=== PATIENT | male | born 1990 | race Caucasian/White ===

== ENCOUNTER 2018-01-07 09:51 | Emergency (ER) | payer MEDICAID, SELFPAY ==
[2018-01-07 09:55] VITALS: BP 146/79; PULSE 102; RESP 18; TEMP 36.7; O2SAT 100
--- NOTE | 2018-01-07 10:03 | ED.GENADUL ---
Disposition Clinical Impression: Drug withdrawal Disposition: HOME Condition: Fair Additional Instructions: Encourage hydration. You may use Imodium to help with your diarrhea. Tylenol and/or ibuprofen as needed for discomfort. Please go directly to [facility] to begin establishing care. If you develop new or worsening symptoms seek care urgently once again. Our team primary care physician has helped to establish a primary care in this area. , Jan.17 at 1:15 PM with Ernie De La Rosa at [facility]. Referrals: Primary Care Provider [Outside] Medical Decision Making - Medical Decision Making Patient presents today with chief complaint of Suboxone withdrawal. Patient reports that he moved here recently from [facility]. Is able to give me the name of his clinic. Was being seen at [facility]. Reports that for the past 5 days he has been without his Suboxone that he is began having withdrawals in particular, patient is endorsing diarrhea, shakiness and inability to sleep. Reviewed PDMP, last received suboxone on 11/20/17. Suboxone 8.6-2.1 #56 for 28 days of therapy. Contacted [facility] in [facility] regarding establishing patient care since possible to receive his Suboxone. However, they advised her to be at least 2 weeks prior to intake seem to be completed. They did advise that even with the cast paperwork, it would be at least 1 week until this paperwork may be reviewed by a physician and signed off on. Contacted [facility] in [facility]. They 2 are in agreement that they may be able to begin him sooner with guest paperwork completed. They advised that they would be able to dose him as soon as tomorrow if we are able to get this paperwork faxed to their facility. Spoke with [facility] in [place] regarding the guest paperwork. They were unfamiliar with this terminology. However, we discussed this further they are aware of what we are referring to. However, they report that is it has been over 1 month since the patient was last seen at the facility they are unable to supply this. They advised that, per state law, they are unable to give the patient any type of medication if it is been over a month since they were evaluated and he would need a full intake once again. They report that he would be able to return back to their facility but that it would be approximately 2 weeks prior to an antique being completed once again. [facility] # [phone]. I discussed this with the patient. Advised that he would need an intake at a nearby facility. Patient is concerned about this as he has been smoking marijuana which would show up on his drug screen. Patient did receive his one-time dosing here. He says that this will be enough to get him for the next few days as he has not been trying to deal with the withdrawal symptoms. He will go directly from here to the [facility] to try to establish care. pediatric care coordinator graciously was able to establish care with local primary care, patient has an appointment next week. We discussed new/worsening symptoms when to seek care urgently once again. Patient was questioning if he may return on a daily basis for his Suboxone dosing. I advised that this would be at the discretion of the provider coming on and would not be guaranteed. All of his questions and concerns were addressed and he is in agreement this plan. History of Present Illness - General Stated complaint: MED CHECK/ REFILL Time Seen by Provider: 01/07/18 09:53 Source: patient, RN notes reviewed Mode of arrival: ambulatory Limitations: no limitations - History of Present Illness Initial comments: Patient is a 27 year old male with history of opioid abuse requesting refill of Suboxone. Patient last had his daily dosing of suboxone 5 days ago. Reports that he is feeling shaky, has had diarrhea, difficulty sleeping. Patient recently moved to the area from [place], [place]. Reports he has been clean of illicit drugs for the past 10 months. Is planning to establish with [facility] but has been unable to do so as of yet, states that he has appointment in a few weeks in [place] at [facility]. However, with his current withdrawal symptoms does not feel like he will be able to wait that long. History of anxiety and depression. - Related Data Buprenorphine HCl/Naloxone HCl [Zubsolv 8.6-2.1 mg Tablet Sl] 2 tab SL DAILY 01/07/18 Docusate Sodium 100 mg PO DAILY 01/07/18 Gabapentin 300 mg PO TID 01/07/18 Omeprazole 20 mg PO DAILY 01/07/18 Quetiapine Fumarate 50 mg PO DAILY 01/07/18 Sennosides [Senna] 8.6 mg PO DAILY 01/07/18 Sertraline [Zoloft] 150 mg PO DAILY 01/07/18 Allergies Allergy/AdvReac Type Severity Reaction Status Date / Time codeine Allergy Itching Unverified 01/07/18 10:03 Review of Systems Constitutional: see HPI. denies: chills, fever, malaise, weakness Respiratory: no symptoms reported. denies: cough, shortness of breath Cardiovascular: denies: chest pain, palpitations Gastrointestinal: as per HPI, diarrhea. denies: abdominal pain, nausea, vomiting Genitourinary: denies: urgency (no change in urinary habits) Musculoskeletal: back pain Skin: denies: rash Neurological: denies: headache Psychiatric: as per HPI Past Medical History - Past Medical History Medical history: no medical history Surgical history: no surgical history Psychiatric history: anxiety, depression - Social History Living Situation: lives with parent(s) (lives with father currently) General Exam - General Limitations: no limitations General appearance: alert, in no apparent distress - Head Head exam: Present: atraumatic - Eye Eye exam: Present: normal apperance - Respiratory Respiratory exam: Present: normal lung sounds bilaterally. Absent: respiratory distress - Cardiovascular Cardiovascular Exam: Present: regular rate, normal rhythm, normal heart sounds - Extremities Exam Extremities exam: Present: normal inspection (appears shaky) - Neurological Exam Neurological exam: Present: alert, normal gait - Psychiatric Psychiatric exam: Present: normal affect, normal mood, anxious. Absent: homicidal ideation, suicidal ideation - Skin Skin exam: Present: warm, dry, normal color Course Vital Signs - 24 hr 01/07/18 09:55 Temperature 36.7 C Pulse 102 H Respiratory 18 Rate Blood Pressure 146/79 Pulse Oximetry 100
--- NOTE | 2018-01-07 10:10 | ED.GENADUL_ITS ---
Disposition Clinical Impression: Drug withdrawal Disposition: HOME Condition: Fair Additional Instructions: Encourage hydration. You may use Imodium to help with your diarrhea. Tylenol and/or ibuprofen as needed for discomfort. Please go directly to [facility] to begin establishing care. If you develop new or worsening symptoms seek care urgently once again. Our human services care specialist has helped to establish a primary care in this area. , Jan.17 at 1:15 PM with Ernie De La Rosa at [facility]. Referrals: Primary Care Provider [Outside] Medical Decision Making - Medical Decision Making Patient presents today with chief complaint of Suboxone withdrawal. Patient reports that he moved here recently from [facility] Is able to give me the name of his clinic. Was being seen at [facility]. Reports that for the past 5 days he has been without his Suboxone that he is began having withdrawals in particular, patient is endorsing diarrhea, shakiness and inability to sleep. Reviewed PDMP, last received suboxone on . Suboxone 8.6-2.1 #56 for 28 days of therapy. Contacted [facility] in [facility] regarding establishing patient care since possible to receive his Suboxone. However, they advised her to be at least 2 weeks prior to intake seem to be completed. They did advise that even with the cast paperwork, it would be at least 1 week until this paperwork may be reviewed by a physician and signed off on. Contacted [facility] in [place]. They 2 are in agreement that they may be able to begin him sooner with guest paperwork completed. They advised that they would be able to dose him as soon as tomorrow if we are able to get this paperwork faxed to their facility. Spoke with [facility] in [place] regarding the guest paperwork. They were unfamiliar with this terminology. However, we discussed this further they are aware of what we are referring to. However, they report that is it has been over 1 month since the patient was last seen at the facility they are unable to supply this. They advised that, per state law, they are unable to give the patient any type of medication if it is been over a month since they were evaluated and he would need a full intake once again. They report that he would be able to return back to their facility but that it would be approximately 2 weeks prior to an antique being completed once again. [facility] # [phone]. I discussed this with the patient. Advised that he would need an intake at a nearby facility. Patient is concerned about this as he has been smoking marijuana which would show up on his drug screen. Patient did receive his one- time dosing here. He says that this will be enough to get him for the next few days as he has not been trying to deal with the withdrawal symptoms. He will go directly from here to the [facility] to try to establish care. community health education coordinator graciously was able to establish care with local primary care, patient has an appointment next week. We discussed new/worsening symptoms when to seek care urgently once again. Patient was questioning if he may return on a daily basis for his Suboxone dosing. I advised that this would be at the discretion of the provider coming on and would not be guaranteed. All of his questions and concerns were addressed and he is in agreement this plan. History of Present Illness - General Stated complaint: MED CHECK/ REFILL Time Seen by Provider: 01/07/18 09:53 Source: patient, RN notes reviewed Mode of arrival: ambulatory Limitations: no limitations - History of Present Illness Initial comments: Patient is a 27 year old male with history of opioid abuse requesting refill of Suboxone. Patient last had his daily dosing of suboxone 5 days ago. Reports that he is feeling shaky, has had diarrhea, difficulty sleeping. Patient recently moved to the area from [place], [place]. Reports he has been clean of illicit drugs for the past 10 months. Is planning to establish with [facility] but has been unable to do so as of yet, states that he has appointment in a few weeks in [place] at [facility]. However, with his current withdrawal symptoms does not feel like he will be able to wait that long. History of anxiety and depression. - Related Data Buprenorphine HCl/Naloxone HCl [Zubsolv 8.6-2.1 mg Tablet Sl] 2 tab SL DAILY Docusate Sodium 100 mg PO DAILY 01/07/18 Gabapentin 300 mg PO TID 01/07/18 Omeprazole 20 mg PO DAILY 01/07/18 Quetiapine Fumarate 50 mg PO DAILY 01/07/18 Sennosides [Senna] 8.6 mg PO DAILY 01/07/18 Sertraline [Zoloft] 150 mg PO DAILY 01/07/18 Allergies Allergy/AdvReac Type Severity Reaction Status Date / Time codeine Allergy Itching Unverified 01/07/18 10:03 Review of Systems Constitutional: see HPI. denies: chills, fever, malaise, weakness Respiratory: no symptoms reported. denies: cough, shortness of breath Cardiovascular: denies: chest pain, palpitations Gastrointestinal: as per HPI, diarrhea. denies: abdominal pain, nausea, vomiting Genitourinary: denies: urgency (no change in urinary habits) Musculoskeletal: back pain Skin: denies: rash Neurological: denies: headache Psychiatric: as per HPI Past Medical History - Past Medical History Medical history: no medical history Surgical history: no surgical history Psychiatric history: anxiety, depression - Social History Living Situation: lives with parent(s) (lives with father currently) General Exam - General Limitations: no limitations General appearance: alert, in no apparent distress - Head Head exam: Present: atraumatic - Eye Eye exam: Present: normal apperance - Respiratory Respiratory exam: Present: normal lung sounds bilaterally. Absent: respiratory distress - Cardiovascular Cardiovascular Exam: Present: regular rate, normal rhythm, normal heart sounds - Extremities Exam Extremities exam: Present: normal inspection (appears shaky) - Neurological Exam Neurological exam: Present: alert, normal gait - Psychiatric Psychiatric exam: Present: normal affect, normal mood, anxious. Absent: homicidal ideation, suicidal ideation - Skin Skin exam: Present: warm, dry, normal color Course Vital Signs - 24 hr 01/07/18 09:55 Temperature 36.7 C Pulse 102 H Respiratory 18 Rate Blood Pressure 146/79 Pulse Oximetry 100
[2018-01-07] MEDS: Buprenorphine/Naloxone 8 mg/2 mg FILM 2 EACH SL (11:17)
--- NOTE | 2018-01-07 11:26 | NUR.NOTE ---
Nursing Note: Patient ambulated in the med[address] way with pulse ox on his finger. Patients HR was 90 the entire time and his spo2 was 98%. Patients respirations were slightly elevated at 26 but he seemed to tolerate the rate.
[2018-01-07 11:38] VITALS: BP 146/79; PULSE 102; RESP 18; TEMP 36.7; O2SAT 100
--- NOTE | 2018-01-07 14:27 | PDOC.ERCMPRO ---
Care Management Progress Note 01/07-Lisbet LANDRY requested assistance with a PCP (Sudhakar exceptional needs teacher) f/u as soon as possible for suboxone withdrawal. Called [facility] and they scheduled Ren for , 01/17 at 1:15 with Ernie De La Rosa. [facility] asked that I add Ernie Granadosjuvencio name to chart. Called access who added. Lisbet LANDRY aware of the above appt and patient given an appt card.
--- NOTE | 2018-01-07 14:30 | CMPROGNOTE_ITS ---
Care Management Progress Note 01/07-Lisbet LANDRY requested assistance with a PCP (Sudhakar software configuration specialist) f/u as soon as possible for suboxone withdrawal. Called [facility] and they scheduled Ren for , 01/17 at 1:15 with Ernie De La Rosa. [facility] asked that I add Ernie Granadosjuvencio name to chart. Called access who added. Lisbet LANDRY aware of the above appt and patient given an appt card.
== END 2018-01-07 11:37 | disposition home or self-care (01) ==
PROVIDERS: Emergency Provider Student in an Organized Health Care Education/Training Program; PCP Physician Assistant Medical
DX: F11.23 Opioid dependence with withdrawal (principal)
CPT/HCPCS: 99283

== ENCOUNTER 2018-11-14 22:07 | Emergency (ER) | payer MEDICAID, SELFPAY ==
[2018-11-14 22:11] VITALS: BP 138/78; PULSE 97; RESP 18; TEMP 37.1; O2SAT 97
--- NOTE | 2018-11-14 23:48 | ED.GENADUL_ITS ---
Discharge Plan Disposition Patient Disposition: HOME Condition: Good Discharge Details Chief Complaint: PsychEval Clinical Impression: Cocaine abuse Primary Care Provider: Ernie De La Rosa ED Provider: Jesus Alberto Negron Meds and New Rx's Prescriptions: Continued methadone 10 mg/mL Concentrate 100 mg PO RF: 0 Discharge Instructions Additional Instructions: Please follow up with [facility]. Recovery Team will be your advocate and help in the process of getting you into rehab. Please use them as a resource. Return to ED if you have any thoughts of harming yourself, harming others, other concerns or problems. Discharge Data Discharge Date/Time-TO BE ENTERED AT DEPARTURE: 11/14/18 23:55 Medical Decision Making Patient here requesting help with substance abuse. He is already a client at [facility] and receives methadone. Drug of choice currently is cocaine. No physical complaints of. Normal vital signs. Normal mental status and neurologic exam. Admits to depression but denies SI or HI. Is concerned that his drug use is going to kill him which is prompted him to come to the ED. Contact made with the recovery coaches, who came in to see the patient. They have spoken with him and will continue to work with him and [facility] to help place him in rehab program. Patient is safe for discharge. Return to ED for increasing depression, SI, HI, other concerns or problems. HPI General Mode of arrival: ambulatory . Date/Time Provider Initiated Documentation: 11/14/18 22:39 . Limitations to Documentation: no limitations . Information obtained by: patient and RN notes reviewed . HPI Narrative: Patient presents to ED requesting help with substance abuse. Patient currently using cocaine as drug of choice on a regular basis. He has previous history of opiate abuse. He is on methadone and followed at [facility]. He reports that they are trying to secure him placement at [facility] for rehab. That has not yet occurred. He is becoming more and more concerned because he cannot control his drug habit. He is afraid that the cocaine is going to kill him. He admits to depression and using drugs to help with this. He has been on prescription medications for depression with no help. He denies any SI or HI. He denies any physical complaints of currently. Related Data Home Medications Medication Instructions Recorded Confirmed methadone 100 mg PO 11/14/18 Allergies Allergy/AdvReac Type Severity Reaction Status Date / Time codeine Allergy Itching Unverified 01/07/18 10:03 General Stated Complaint: PsychEval JAMAL: 3 Review of Systems Review of Systems As documented in HPI otherwise negative as below. Const: no fever, chills, weakness Resp: no cough, SOB, pleuritic pain CV: no CP, diaphoresis, edema, syncope GI: no abdominal pain, nausea, vomiting, diarrhea Neuro: no headache, numbness, focal weakness, confusion PFSH Medical History Depression (Chronic) Social History Smoking/Tobacco Use Status: Current every day Drug use: Daily Do you feel safe in your relationship?: Yes Exam Narrative Exam Narrative: Vitals: Afebrile with normal vital signs. Const: WDWN male in NAD. HEENT: NC/AT. Normal facial exam. Eyes: Normal conjunctiva and sclera. Neck: Supple. Trachea midline. Lungs: Normal respiratory effort. Lungs are clear. Cor: RRR without murmur/gallop. Neuro: A+O x 3. CN grossly in tact. Good strength and no focal deficit. Psych: Normal speech and mental status. Normal thought content. No SI or HI. Course Vital Signs Temperature 98.8 F 11/14/18 22:11 Pulse 97 H 11/14/18 22:11 Respiratory Rate 18 11/14/18 22:11 Blood Pressure 138/78 11/14/18 22:11 Pulse Oximetry 97 11/14/18 22:11 Temperature 98.8 F 11/14/18 22:11 Temperature Source Tympanic 11/14/18 22:11 Pulse 97 H 11/14/18 22:11 Respiratory Rate 18 11/14/18 22:11 Blood Pressure 138/78 11/14/18 22:11 Pulse Oximetry 97 11/14/18 22:11 Oxygen Delivery Method Room Air 11/14/18 22:11 Oxygen Flow Rate 0 11/14/18 22:11 Pain Level 0 11/14/18 22:11
[2018-11-14 23:52] VITALS: BP 138/78; PULSE 97; RESP 18; O2SAT 97
== END 2018-11-14 23:55 | disposition home or self-care (01) ==
PROVIDERS: Emergency Provider Emergency Medicine; PCP Specialist/Technologist Athletic Trainer
DX: F14.20 Cocaine dependence, uncomplicated (principal); F32.9 Major depressive disorder, single episode, unspecified
CPT/HCPCS: 99283

== ENCOUNTER 2019-02-01 09:50 | Emergency (ER) | payer MEDICAID, SELFPAY ==
--- NOTE | 2019-02-01 09:52 | ED.GENADUL_ITS ---
Discharge Plan Disposition Patient Disposition: HOME Condition: Fair Discharge Details Chief Complaint: DentalOral Clinical Impression: Dental infection Primary Care Provider: Ernie De La Rosa ED Provider: Lisbet Pedersen Home Meds and New Rx's Prescriptions: New amoxicillin-pot clavulanate [Augmentin] 875-125 mg tablet 1 tab PO BID Qty: 14 RF: 0 Continued methadone 10 mg/mL Concentrate 100 mg PO DAILY RF: 0 sertraline [Zoloft] 100 mg Tablet 100 mg PO DAILY RF: 0 Discharge Instructions Instructions: Dental Abscess (ED) Additional Instructions: Encourage hydration. Tylenol and/or ibuprofen as needed for discomfort. You may use topical anesthetics to help with discomfort. Please take Augmentin as prescribed for infection. If you develop fever/chills, increased pain, swelling or other new/worsening symptoms please seek care urgently once again. Otherwise, you will need follow-up with dentist. Please call, attached is a list of the local dentist. Referrals: Ernie De La Rosa [Primary Care Provider] - Medical Decision Making Patient is a 28 year old male presents today with chief complaint of right upper dental pain. Which is progressive and worsening over the past 3 weeks. States it has become significantly worse in recent days. Denies any fevers or chills. Has a known fractured tooth. Does not see a dentist regularly. Denies any fevers or chills. No trauma. Denies any difficulty swallowing, no stridor or shortness of breath. Patient is point tender on the buccal side of the #1 tooth. I do not see any evidence of fluctuance to suggest drainable abscess. These have some mild erythema to this area. Patient has other areas of poor dentition fracture #32 tooth. I am concerned for possible dental infection. Patient will be treated with antibiotics. Encourage hydration. Advised he will need definitive care with a dentist. He was given strict return precautions. All questions concerns were addressed and he is in agreement this plan. HPI General Mode of arrival: ambulatory . Date/Time Provider Initiated Documentation: 02/01/19 09:52 . Limitations to Documentation: no limitations . Information obtained by: patient and RN notes reviewed . History of Present Illness 28 year old M presents to the emergency department with the chief complaint of right upper dental pain, described as moderate, with intensity rated at 7. Quality is described as aching, and is localized to the mouth. Patient reports no radiation. Patient started experiencing this week(s) and it has been constant. No relieving factors improve symptom(s), No exacerbating factors reported . Patient notes no other symptoms.; denies fever/chills, headaches, loss of appetite, nausea/vomiting, rash and shortness of breath. Patient did receive the following treatments prior to arrival, none Related Data Home Medications Medication Instructions Recorded Confirmed methadone 100 mg PO DAILY 11/14/18 02/01/19 amoxicillin-pot clavulanate 1 tab PO BID #14 tab 02/01/19 [Augmentin] sertraline [Zoloft] 100 mg PO DAILY 02/01/19 02/01/19 Previous Rx's Medication Instructions Recorded amoxicillin-pot clavulanate 1 tab PO BID #14 tab 02/01/19 [Augmentin] Allergies Allergy/AdvReac Type Severity Reaction Status Date / Time codeine Allergy Itching Unverified 02/01/19 09:59 General JAMAL: 3 Review of Systems Constitutional Constitutional: Reports as per HPI, Denies chills, Denies fatigue, Denies fever(s), Denies headache(s) and Denies poor appetite Eyes Eyes: Denies change in vision and Denies irritation ENT Ears, Nose, Mouth, and Throat: Reports as per HPI, Reports dental pain, Denies dysphagia, Denies dizziness, Denies dry mouth, Denies ear discharge, Denies otalgia, Reports facial pain, Denies headache(s), Denies hoarseness, Denies lip swelling, Denies nasal congestion, Denies odynophagia and Denies sore throat Cardiovascular Cardiovascular: Reports as per HPI and Denies chest pain Respiratory Respiratory: Reports as per HPI and Denies cough Gastrointestinal Gastrointestinal: Reports as per HPI, Denies dysphagia, Denies nausea, Denies odynophagia and Denies vomiting Integumentary/Breasts Skin/Breast: Reports as per HPI, Denies erythema, Denies rash and Denies skin pain Neurologic Neurologic: Reports as per HPI, Denies dizziness and Denies headache(s) Endocrine Endocrine: Denies fatigue Allergic/Immunologic Allergic/Immunologic: Denies lip swelling PFSH Medical History Depression (Chronic) Social History (Reviewed 02/01/19 @ 10:14 by VAISHALI Pelaez Smoking/Tobacco Use Status: Current every day Tobacco Type: cigarettes Alcohol Intake: never Drug use: Daily Substance use type: marijuana Do you feel safe at home: Yes Do you feel safe in your relationship?: Yes Exam Const General: cooperative, healthy appearing, comfortable, no acute distress, well developed and well groomed Nutritional Appearance: average body habitus and well nourished Orientation: alert and awake [facility] Head: normal to inspection, normocephalic and atraumatic Ears: hearing grossly normal bilaterally, external ears normal and TM's normal bilaterally General nose exam: external nose normal and nares normal Face and sinus: normal facial exam, sinuses nontender and face symmetric Mouth: oral mucosae normal, lip normal, tongue normal, oropharynx normal, moist mucous membranes, no muffled voice and no trismus Teeth and gingiva: abnormal dentition, caries (broken #32 tooth), poor dentition and other (pain with palpation of the gingival buccal side #1 tooth, no fluctuance) Throat: posterior oropharynx normal, tonsils normal and uvula midline Eyes General: appearance normal, both eyes and all related structures Neck Neck: normal visual inspection, full ROM, no lymphadenopathy, supple and no anterior neck swelling Resp Effort & Inspection: normal respiratory effort, able to speak in complete sentences and no respiratory distress Auscultation: clear to auscultation bilaterally, no rales, no rhonchi and no wheezes Cardio Rate: regular rate Rhythm: regular rhythm Heart Sounds: S1 normal and S2 normal Skin General skin exam: no rashes or lesions noted Trauma: no lacerations or abrasions Neuro General: alert and awake Cognition: normal cognition Speech: speech normal Gait: normal gait Psych Appearance: grossly normal and well kempt Mental Status: mental status grossly normal Speech and Movement: speech and movement normal
[2019-02-01 09:54] VITALS: BP 127/79; PULSE 74; RESP 15; TEMP 36.6; O2SAT 98
== END 2019-02-01 10:24 | disposition home or self-care (01) ==
LOC: ER 10:26
PROVIDERS: Emergency Provider Physician Assistant; PCP Specialist/Technologist Athletic Trainer
DX: K04.7 Periapical abscess without sinus (principal); K03.81 Cracked tooth
CPT/HCPCS: 99283

== ENCOUNTER 2021-07-26 11:04 | Emergency (ER) | payer MEDICAID, SELFPAY ==
[2021-07-26 11:04] VITALS: BP 141/67; PULSE 82; RESP 18; TEMP 36.1; O2SAT 100
--- NOTE | 2021-07-26 11:05 | ED.GENADUL_ITS ---
Discharge Plan Disposition Patient Disposition: OTHER Condition: Stable Discharge Details Clinical Impression: Opiate withdrawal, Medication requested Primary Care Provider: Ernie De La Rosa ED Provider: Diana Gunderson Home Meds and New Rx's Prescriptions: Discontinued methadone 10 mg/mL Concentrate 100 mg PO DAILY 0RF Discharge Instructions Instructions: Opioid Withdrawal (ED) Additional Instructions: Go directly to the [facility] down the road on [address] to be evaluated and to start induction of Suboxone. Return immediately to the emergency department if you develop any worsening or new concerning symptoms. Discharge Data Discharge Date/Time-TO BE ENTERED AT DEPARTURE: 07/26/21 11:58 Discharge Physician: Diana Gunderson Medical Decision Making 30yo M with a history of polysubstance abuse previously on Suboxone a few years ago most recently on methadone with last use 9 days ago presents with restlessness, body aches, nausea and diarrhea for the past week since his last dose of methadone and reporting his symptoms are similar to previous opiate withdrawal in the past. Last use of fentanyl 2 days ago patient has tried to stop using street fentanyl and would like to restart suboxone. Blood pressure mildly hypertensive, remainder vitals within normal limits. Patient appears minimally restless but otherwise nontoxic appearing. He is ANO x3 and has no focal deficits on exam. Lungs clear. Abdomen soft and nontender. History and presentation does not appear consistent with meningitis, pneumonia, CVA, ACS. Patient states he is here to start Suboxone. Screening labs were obtained on arrival and essentially unremarkable. Case discussed with Ora Gallagher at the [facility] --patient can come directly to the [facility] to start Suboxone induction at this time. From my perspective as the patient is medically cleared, will plan for discharge for him to go directly to the [facility]. Patient feels comfortable walking directly down to the [facility] as he walked off of the ambulance. Usual and customary return precautions given prior to discharge. Medical Records Medical records reviewed: Yes I reviewed the patient's medical records. Lab Data Lab results reviewed: Yes I reviewed the patient's lab results. Labs: Laboratory Tests Range/Units 07/26/21 07/26/21 11:23 11:23 WBC (4.4-10.8) 10^3/uL 6.47 RBC (4.36-5.78) 10^6/uL 4.39 Hgb (13.5-17.5) g/dL 13.2 L Hct (40.0-50.0) % 39.1 L MCV (80-95) fL 89.1 MCH (27.0-33.0) pg 30.1 MCHC (32.0-36.0) % 33.8 RDW (11.8-14.1) % 13.9 Plt Count (130-400) 10^3/uL 346 MPV (8.0-11.0) fL 8.6 Immature Gran % 0.5 Neutrophils % 73.1 Lymphocytes % 22.7 Monocytes % 3.2 Eosinophils % 0.3 Basophils % 0.2 Nucleated RBC % % 0 Absolute Neutrophils (1.2-6.7) 10^3/uL 4.73 Absolute Lymphocytes (1.2-3.4) 10^3/uL 1.47 Absolute Monocytes (0.1-0.8) 10^3/uL 0.21 Absolute Eosinophils (0.0-0.7) 10^3/uL 0.02 Absolute Basophils (0.0-0.2) 10^3/uL 0.01 Sodium (136-145) mmol/L 140 Potassium (3.5-5.1) mmol/L 4.1 Chloride (98-107) mmol/L 105 Carbon Dioxide (21.0-32.0) mmol/L 29.0 Anion Gap (3-11) mmol/L 6.0 BUN (7-18) mg/dL 13 Creatinine (0.70-1.30) mg/dL 0.8 Estimated GFR/1.73 m2 (mL/min/1.73m2) >= 60.00 Glucose (74-106) mg/dL 117 H Calcium (8.5-10.1) mg/dL 9.2 Total Bilirubin (0.2-1.0) mg/dL 0.2 AST (15-37) U/L 14 L ALT (16-63) U/L 32 Alkaline Phosphatase (46-116) U/L 84 Total Protein (6.4-8.2) g/dL 8.0 Albumin (3.4-5.0) g/dL 3.8 Lipase (73-393) U/L 88 HPI General Mode of arrival: EMS . Date/Time Provider Initiated Documentation: 07/26/21 11:19 . Limitations to Documentation: no limitations . Information obtained by: patient . HPI Narrative: Patient is a 30-year-old male with a history of polysubstance abuse previously on Suboxone and recently stopped using methadone now using street fentanyl who presents for symptoms of drug withdrawal. Patient states he had been on Suboxone a few years ago and would like to restart this. She states he has been on methadone for a couple years and was being followed at the [facility] but then moved to [facility] where he has been for the past 6 months. He moved here over a week ago and has not had his methadone for the past 9 days. He states he has been using 30 bags of heroin or fentanyl daily since his last dose of methadone. He states his last use of fentanyl was 2 days ago. He states for the past week he has had symptoms of restlessness, body aches, nausea and diarrhea and states the symptoms are similar to when he has had previous opiate withdrawal. He states he sometimes injects or smoke fentanyl. He states he also has been occasionally smoking cocaine. He states his last cocaine use was 2 days ago. He denies any other drug or alcohol use. Patient states he was hospitalized last month at [facility] for MRSA bacteremia. States he was discharged home on antibiotics and his symptoms completely resolved and states he has been feeling fine until his withdrawal symptoms started last week. He states he has no symptoms similar to when he had bacteremia last month and states he completely recovered from this. He denies any fever, headache, chest pain, shortness of breath, abdominal pain, urinary symptoms. Related Data Allergies Allergy/AdvReac Type Severity Reaction Status Date / Time codeine Allergy Itching Unverified 07/26/21 11:12 General Stated Complaint: DrugWithdr/MAT JAMAL: 3 Review of Systems All systems reviewed & are unremarkable except as noted in HPI and below Constitutional Constitutional: Reports as per HPI, Reports body ache(s), Denies chills, Reports difficulty sleeping, Denies excessive sweating, Denies fatigue, Denies fever(s), Reports malaise and Reports poor appetite Eyes Eyes: Denies blurry vision ENT Ears, Nose, Mouth, and Throat: Denies dizziness, Denies sore throat and Denies throat swelling Cardiovascular Cardiovascular: Denies chest pain and Denies dyspnea Respiratory Respiratory: Denies cough and Denies dyspnea Gastrointestinal Gastrointestinal: Denies abdominal pain, Reports diarrhea, Reports nausea and Denies vomiting Genitourinary Genitourinary: Denies hematuria and Denies dysuria Musculoskeletal Musculoskeletal: Denies back pain and Denies numbness Integumentary/Breasts Skin/Breast: Denies lesions and Denies rash Neurologic Neurologic: Denies behavioral changes, Denies confusion, Denies dizziness, Denies localized weakness and Denies numbness Psychiatric Psychiatric: Denies behavioral changes, Denies confusion and Denies depression Endocrine Endocrine: Denies excessive sweating and Denies fatigue Hematologic/Lymphatic Hematologic/Lymphatic: Denies easy bruising and Denies lymphadenopathy Allergic/Immunologic Allergic/Immunologic: Denies throat swelling PFSH All Active Problems (Updated 07/26/21 @ 11:54 by Diana Gunderson DO) Opiate withdrawal (Acute) Medication requested (Acute) Medical History (Updated 07/26/21 @ 11:54 by Diana Gunderson DO) Depression Social History Smoking/Tobacco Use Status: Current every day Tobacco Type: cigarettes Smoking risk assessment performed?: Yes Alcohol Intake: never Drug use: Daily Substance use type: marijuana, crack/cocaine and heroin Details: Methadone clinic in [facility]--no doses x 1 week Suboxone clinic --off 2 years Do you feel safe at home: Yes Do you feel safe in your relationship?: Yes Exam Const General: cooperative, disheveled, ill appearing chronically and other (restless at times on stretcher) Orientation: alert, awake and oriented x3 HENMT Head: normal to inspection Ears: hearing grossly normal bilaterally and external ears normal General nose exam: external nose normal Face and sinus: normal facial exam Mouth: oral mucosae normal Teeth and gingiva: poor dentition Throat: posterior oropharynx normal Eyes General: appearance normal, both eyes and all related structures Eyelids: eyelids normal Pupils: PERRL EOM: EOM intact bilaterally Neck Neck: normal visual inspection Lymphatic: no lymphadenopathy noted Chest Chest: normal inspection of the chest Resp Effort & Inspection: normal respiratory effort and able to speak in complete sentences Auscultation: clear to auscultation bilaterally Cardio Rate: regular rate Rhythm: regular rhythm GI Inspection: normal to inspection Palpation: soft, not firm, no guarding, no hepatosplenomegaly, no masses and nontender Auscultation: normal bowel sounds Back/Spine/Pelvis Back: no CVA tenderness Skin Other: 4mm flat crusted maroon colored lesions noted to face, torso, extremities w/o signs of cellulitis. Reported last site of fentanyl infection right AC fossa without tenderness, erythema, edema, induration, fluctuance or red streaking. Neuro General: patient alert, patient awake and patient oriented x3 Cognition: normal cognition Speech: speech normal Gait: normal gait Motor: muscle tone normal throughout Sensory Exam: no sensory deficits noted Extrem General: normal to inspection, full ROM and capillary refill normal Psych Appearance: grossly normal Mental Status: mental status grossly normal Speech and Movement: speech and movement normal Affect: normal affect Thought Process: normal
[2021-07-26 11:35] LABS: Abs Immature Grans 0.03 10^3/uL (0.0-0.06); Absolute Basophil Count 0.01 10^3/uL (0.0-0.2); Absolute Eosinophil Count 0.02 10^3/uL (0.0-0.7); Absolute Lymphocyte Count 1.47 10^3/uL (1.2-3.4); Absolute Monocyte Count 0.21 10^3/uL (0.1-0.8); Absolute Neutrophil Count 4.73 10^3/uL (1.2-6.7); Basophils % 0.2; Eosinophils % 0.3; HCT 39.1 % (40.0-50.0); HGB 13.2 g/dL (13.5-17.5); Immature Grans % 0.5; Lymphocytes % 22.7; MCH 30.1 pg (27.0-33.0); MCHC 33.8 % (32.0-36.0); MCV 89.1 fL (80-95); MPV 8.6 fL (8.0-11.0); Monocytes % 3.2; Neutrophils % 73.1; Nucleated RBC 0 %; Platelet Count 346 10^3/uL (130-400); RBC 4.39 10^6/uL (4.36-5.78); RDW 13.9 % (11.8-14.1); RDW-SD 45.1 fL; WBC 6.47 10^3/uL (4.4-10.8)
[2021-07-26 11:50] LABS: ALT 32 U/L (16-63); AST 14 U/L (15-37); Albumin 3.8 g/dL (3.4-5.0); Alkaline Phosphatase 84 U/L (46-116); BUN 13 mg/dL (7-18); Bilirubin, Total 0.2 mg/dL (0.2-1.0); CREATININE 0.8 mg/dL (0.70-1.30); Calcium 9.2 mg/dL (8.5-10.1); Chloride 105 mmol/L (98-107); Glucose 117 mg/dL (74-106); Lipase 88 U/L (73-393); Potassium 4.1 mmol/L (3.5-5.1); Sodium 140 mmol/L (136-145)
[2021-07-26] MEDS: Ondansetron O.D.T. 4 MG TABEF (11:58)
--- NOTE | 2021-07-26 12:52 | NUR.NOTE ---
Nursing Note: Kingdom Reema Guallpa, is aware of this patient. Aleyda Marshall
== END 2021-07-26 11:58 | disposition other institution (70) ==
LOC: ER 12:03
PROVIDERS: Emergency Provider Physician Assistant; PCP Specialist/Technologist Athletic Trainer
DX: F11.23 Opioid dependence with withdrawal (principal)
CPT/HCPCS: 36415; 80053; 83690; 99283; 85025

== ENCOUNTER 2021-08-04 11:40 | Inpatient (IN) | payer MEDICAID, SELFPAY ==
[2021-08-04] VITALS (7 sets, daily range): BP systolic 87–123; BP diastolic 45–67; PULSE 71–96; RESP 16–18; TEMP 36.6–40.2; O2SAT 95–98
--- NOTE | 2021-08-04 12:22 | W.ED.GENAD ---
Discharge Plan Disposition Condition: Good Discharge Details Chief Complaint: Cellulitis Admit Date/Time: 08/04/21 15:30 Admit Provider: Kristin Watkins Attending Provider: Kristin Watkins Primary Care Provider: Arlin Gant ED Provider: Deepika Cardoza Discharge Instructions Activity:: Activity as Tolerated Equipment/Supplies:: No Equipment Needed Diet:: As Tolerated Discharge Orders Discharge Orders: Discharge Order (Routine); Ordered 08/07/21 Ordered By: Kristin Watkins Discharge Data Discharge Date/Time-TO BE ENTERED AT DEPARTURE: 08/04/21 16:20 Medical Decision Making Patient is alert and oriented, pleasant Tachycardic at 96 and has obvious cellulitis with leukocytosis, 13,000 Patient meets sepsis criteria He is diaphoretic and lightheaded He warrants admission for observation His CRP is elevated at 17 His lactate is negative Procalcitonin is pending at the request of admitting Chest x-ray did not show abnormality Covid swab pending He had 3 separate blood cultures that are pending He is agreeable to admission at this time He is receiving Toradol for discomfort Case was discussed with Dr. Watkins who agreed to accept the patient for hospital admission Sed rate elevated at time No clinical evidence of necrotizing fasciitis, no obvious drainable abscesses, pustules noted to numerous excoriations visualized No splinter hemorrhages Patient IV drug abuse history and clinical exam findings, vancomycin and Zosyn were initiated Medical Records Medical records reviewed: Yes I reviewed the patient's medical records. Lab Data Lab results reviewed: Yes I reviewed the patient's lab results. HPI General Date/Time Provider Initiated Documentation: 08/04/21 12:21. HPI Narrative: This pleasant 30-year-old gentleman with history of recent bacteremia, recently treated [facility] presents with report of recurrent cellulitis, chills, subjective fevers. Patient last used IV fentanyl 3 days prior to arrival. He had cocaine yesterday reportedly. He has started on methadone treatment at the [facility] today. He states that the fever and redness began approximately 2 days ago. He his symptoms are similar to his prior admission. He denies known history of endocarditis does not believe he has an ultrasound during his last admission to [facility]. He denies any current chest pain or shortness of breath. He states he feels lightheaded. He denies any urinary complaints or cough. He denies any known Covid exposure. Related Data Home Medications Medication Instructions Recorded Confirmed methadone 10 mg/mL injection 60 mg DAILY 08/04/21 08/04/21 solution Allergies Allergy/AdvReac Type Severity Reaction Status Date / Time codeine Allergy Itching Unverified 08/04/21 12:04 General Stated Complaint: Cellulitis JAMAL: 3 Review of Systems All systems reviewed & are unremarkable except as noted in HPI and below PFSH All Active Problems (Updated 08/08/21 @ 00:05 by MARIIA WILLIS) IV drug abuse (Acute) Cellulitis (Acute) Opiate withdrawal (Acute) Medication requested (Acute) Medical History Bacteremia Depression Hepatitis C Opioid abuse Osteomyelitis of right hip Surgical History No history of previous surgery Social History (Updated 08/06/21 @ 12:25 by Isak Srinivasan) Smoking/Tobacco Use Status: Current every day Tobacco Type: cigarettes Smoking risk assessment performed?: Yes Alcohol Intake: never Drug use: Daily Substance use type: marijuana, crack/cocaine and heroin Details: Methadone clinic in [facility]--no doses x 1 week Suboxone clinic --off 2 years Do you feel safe at home: Yes Do you feel safe in your relationship?: Yes 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 indurated 2 inch lesion, no fluctuance 2. pustule 3. pustule 4. pustule Neuro General: patient alert and patient oriented x3 Extrem Other: diffuse macerated, pustular lesions no janeway lesions Course Vital Signs Vital signs: Vital Signs Temperature 36.6 C 08/04/21 11:59 Pulse 96 H 08/04/21 11:59 Respiratory Rate 16 08/04/21 11:59 Blood Pressure 112/64 08/04/21 11:59 Pulse Oximetry 98 08/04/21 11:59 Temperature 36.6 C 08/04/21 11:59 Temperature Source Skin 08/04/21 11:59 Pulse 96 H 08/04/21 11:59 Respiratory Rate 16 08/04/21 11:59 Respiratory Effort 08/04/21 11:59 Blood Pressure 112/64 08/04/21 11:59 Blood Pressure Position Sitting 08/04/21 11:59 Pulse Oximetry 98 08/04/21 11:59 Oxygen Delivery Method Room Air 08/04/21 11:59 Oxygen Flow Rate 0 08/04/21 11:59 Pain Level 7 08/04/21 11:59
[2021-08-04 13:21] LABS: Abs Immature Grans 0.05 10^3/uL (0.0-0.06); Absolute Basophil Count 0.01 10^3/uL (0.0-0.2); Absolute Eosinophil Count 0.01 10^3/uL (0.0-0.7); Absolute Monocyte Count 1.01 10^3/uL (0.1-0.8); Basophils % 0.1; Eosinophils % 0.1; HCT 36.4 % (40.0-50.0); HGB 12.1 g/dL (13.5-17.5); Immature Grans % 0.4; Lymphocytes % 13.6; MCHC 33.2 % (32.0-36.0); MCV 90.3 fL (80-95); MPV 8.7 fL (8.0-11.0); Monocytes % 7.3; Neutrophils % 78.5; Nucleated RBC 0 %; Platelet Count 309 10^3/uL (130-400); RBC 4.03 10^6/uL (4.36-5.78); RDW 13.3 % (11.8-14.1); RDW-SD 44.4 fL; WBC 13.87 10^3/uL (4.4-10.8)
[2021-08-04 13:23] LABS: Absolute Lymphocyte Count 1.89 10^3/uL (1.2-3.4); Absolute Neutrophil Count 10.89 10^3/uL (1.2-6.7)
[2021-08-04] MEDS: Ketorolac 15 MG/ML VIAL IVP (13:31)
[2021-08-04] MEDS: CLINDAMYCIN 600 MG/50 ML BAG 100 MG IVPB (13:35)
[2021-08-04 13:37] LABS: ALT 28 U/L (16-63); AST 18 U/L (15-37); Albumin 3.8 g/dL (3.4-5.0); Alkaline Phosphatase 82 U/L (46-116); BUN 11 mg/dL (7-18); Bilirubin, Total 0.8 mg/dL (0.2-1.0); C-Reactive Protein 7.34 mg/dL (0.0-0.3); CREATININE 0.8 mg/dL (0.70-1.30); Calcium 9.2 mg/dL (8.5-10.1); Chloride 97 mmol/L (98-107); Glucose 114 mg/dL (74-106); Potassium 3.7 mmol/L (3.5-5.1); Sodium 133 mmol/L (136-145)
--- NOTE | 2021-08-04 14:15 | DI.RAD_ITS ---
Exam(s) XR PORTABLE CHEST AP EXAM: XR PORTABLE CHEST AP CLINICAL HISTORY: ivda fever TECHNIQUE: 2D digital imaging was performed of the chest. One image was obtained. An AP view was ob tained. COMPARISON: No exams were available for comparison FINDINGS: MEDIASTINUM: Normal. HEART: Normal. PULMONARY VASCULATURE: Normal. LUNGS: Clear. PLEURAL SPACE: No pleural effusion or pneumothorax. BONE:Within normal limits for the patient's age. OTHER FINDINGS:Normal. IMPRESSION: No acute pulmonary findings. DATA REPOSITORY: RADIATION DOSE DELIVERED:
--- NOTE | 2021-08-04 14:15 | RT.EKG_ITS ---
APPROVED REPORT Exam: Resting ECG Reason for Exam: ivda, fever, tachycardia Patient Location: E HR:75 bpm ECG Measurements Heart Rate 75 AXIS ND 152 P -7 QRSd 95 QRS 67 QT 394 T 46 QTc 439 Conclusion Sinus rhythm...normal P axis, V-rate 60- 99
[2021-08-04 14:53] LABS: ESR 26 mm/hr (0-15)
[2021-08-04 14:54] LABS: Lactate 0.7 mmol/L (0.6-1.4)
[2021-08-04] MEDS: Normal Saline 1,000 ML 1000 ML IV (14:57)
[2021-08-04] MEDS: PIPERACILLIN/TAZO 3.375 GM in Normal Saline 50 ML IVPB (14:58)
[2021-08-04 15:05] LABS: Source Nasal/Nares
[2021-08-04 15:44] LABS: COVID-19 PCR Negative (Negative)
[2021-08-04] MEDS: VANCOMYCIN/WATER (PEG) 2 GM/400 ML BAG IVPB (15:57)
[2021-08-04 17:09] LABS: Procalcitonin < 0.1 ng/mL
[2021-08-04] MEDS: Normal Saline 1,000 ML 125 ML IV (18:07)
[2021-08-04] MEDS: cefTRIAXone 2 GM/50 ML BAG IVPB (18:07)
--- NOTE | 2021-08-04 18:47 | HPE_ITS ---
Date of service: 08/04/21 Time of Service: 18:47 Assessment and Plan Assessment and plan (1) Sepsis: Status: Acute Assessment and plan: Due to cellulitis of BUEs. Need to rule out bacteremia/endocarditis. Continue empiric vancomycin; switch zosyn to ceftriaxone, IVF. Await blood cultures. Trend CRP. Obtain echo. (2) Cellulitis: Status: Acute Assessment and plan: As above Additionally, maturing abscess on the back may require an I&D. (3) IV drug abuse: Status: Acute Assessment and plan: THe patient is Hep C positive. He politely declined when offered to get HIV testing. Continue outpatient methadone (4) Opioid abuse: Assessment and plan: As above (5) DVT prophylaxis: Status: Acute Assessment and plan: Not required in an ambulatory 30 year old male (6) Discharge planning issues: Status: Acute Assessment and plan: Full code History of Present Illness History of Present Illness Chief Complaint: I thought I might have an infection Narrative: Mr Key is a 30 year old male with PMHx of IVD abuse, prior episode of bacteremia and R hip osteomyelitis treated at [facility] with vancomycin (the patient is not sure which organism), as well as hepatitis C, opioid dependence on methadone through [facility] who presented to [facility] ED today c/o 2-3 days of malaise, subjective fevers/chills, and a painful lesion on his back. He last used IV fentanyl 2 days ago and smokes crack cocaine. He states that he used a clean needle and syringe. In the ED, he had a temperature of 100.4, per provider, and had a leucocytosis. He had multiple scabbed over leasions on BUEs as well as on his thorax and one maturing abscess on his back. He was initiated on empiric vancomycin/zosyn in the ED, and hospitalist admission was requested. Review of Systems All systems reviewed & are unremarkable except as noted in HPI and below PFSH All Active Problems (Updated 08/04/21 @ 18:55 by Kristin Watkins MD) Discharge planning issues (Acute) DVT prophylaxis (Acute) IV drug abuse (Acute) Cellulitis (Acute) Sepsis (Acute) Opiate withdrawal (Acute) Medication requested (Acute) Medical History (Updated 08/04/21 @ 18:55 by Kristin Watkins MD) Bacteremia Depression Hepatitis C Opioid abuse Osteomyelitis of right hip Surgical History (Updated 08/04/21 @ 18:51 by Kristin Watkins MD) No history of previous surgery Social History Smoking/Tobacco Use Status: Current every day Tobacco Type: cigarettes Smoking risk assessment performed?: Yes Alcohol Intake: never Drug use: Daily Substance use type: marijuana, crack/cocaine and heroin Details: Methadone clinic in [facility]--no doses x 1 week Suboxone clinic --off 2 years Do you feel safe at home: Yes Do you feel safe in your relationship?: Yes Meds Allergies and Home Medications Allergies Allergy/AdvReac Type Severity Reaction Status Date / Time codeine Allergy Itching Unverified 08/04/21 12:04 Home Medications Medication Instructions Recorded Confirmed Type methadone 10 mg/mL injection 60 mg DAILY 08/04/21 08/04/21 History solution Exam Narrative Exam Narrative: General: Very pleasant male who is ill appearing, in bed, A&Ox3, very cooperative Neurological: A&ox3, no focal deficits Psychiatric: Appropriate speech pattern/content Skin: Multiple scabbed over lesions throughout face, BUEs, torso; maturing abscess on R back HEENT: Atraumatic, normocephalic, erythematous scabbed over lesions as above, EOMI, MMM, clear oropharynx, no submandibular or cervical lymphadenopathy, no goiter or JVD Cardiovascular: RRR, no m/r/g Lungs: CTAB Gastrointestinal: soft,nontender, nondistended Genitourinary: deferred Extremities: BUEs with scabbed over erythematous lesions; no lesions on lower extremities, no splinter hemorrhages/janeway lesions/hanna spots, +1 pedal pulses, no e/c/c. Results Imaging Additional studies: CXR; No acute pulmonary findings. Labs Result diagrams: 08/04/21 13:15 08/04/21 13:15 Labs: Laboratory Results - last 24 hr 08/04/21 08/04/21 08/04/21 13:15 13:15 13:15 WBC 13.87 H RBC 4.03 L Hgb 12.1 L Hct 36.4 L MCV 90.3 MCH 30.0 MCHC 33.2 RDW 13.3 Plt Count 309 MPV 8.7 Immature Gran % 0.4 Neutrophils % 78.5 Lymphocytes % 13.6 Monocytes % 7.3 Eosinophils % 0.1 Basophils % 0.1 Nucleated RBC % 0 Absolute Neutrophils 10.89 H Absolute Lymphocytes 1.89 Absolute Monocytes 1.01 H Absolute Eosinophils 0.01 Absolute Basophils 0.01 ESR VBG Lactate Sodium 133 L Potassium 3.7 Chloride 97 L Carbon Dioxide 32.0 Anion Gap 4.0 BUN 11 Creatinine 0.8 Estimated GFR/1.73 m2 >= 60.00 Glucose 114 H Calcium 9.2 Total Bilirubin 0.8 AST 18 ALT 28 Alkaline Phosphatase 82 C-Reactive Protein 7.34 H Total Protein 8.0 Albumin 3.8 Procalcitonin < 0.1 COVID-19 Source SARS-CoV-2 (PCR) 08/04/21 08/04/21 08/04/21 14:49 14:49 15:00 WBC RBC Hgb Hct MCV MCH MCHC RDW Plt Count MPV Immature Gran % Neutrophils % Lymphocytes % Monocytes % Eosinophils % Basophils % Nucleated RBC % Absolute Neutrophils Absolute Lymphocytes Absolute Monocytes Absolute Eosinophils Absolute Basophils ESR 26 H VBG Lactate 0.7 Sodium Potassium Chloride Carbon Dioxide Anion Gap BUN Creatinine Estimated GFR/1.73 m2 Glucose Calcium Total Bilirubin AST ALT Alkaline Phosphatase C-Reactive Protein Total Protein Albumin Procalcitonin COVID-19 Source Nasal/Nares SARS-CoV-2 (PCR) Negative Last Vital Signs Temp 37.2 C 08/04/21 16:38 Pulse 71 08/04/21 16:38 Resp 18 08/04/21 16:38 BP 123/67 08/04/21 16:38 Pulse Ox 97 08/04/21 16:38
[2021-08-04] MEDS: VANCOMYCIN/WATER (PEG) 1.5 GM/300 ML BAG IV (23:36)
[2021-08-04] MEDS: Acetaminophen 325 MG TAB PO (23:37)
[2021-08-05 02:40] VITALS: TEMP 37
[2021-08-05] MEDS: Normal Saline 1,000 ML 125 ML IV ×2 (04:30→14:13)
[2021-08-05 06:59] LABS: Abs Immature Grans 0.02 10^3/uL (0.0-0.06); Absolute Basophil Count 0.01 10^3/uL (0.0-0.2); Absolute Eosinophil Count 0.15 10^3/uL (0.0-0.7); Absolute Monocyte Count 0.75 10^3/uL (0.1-0.8); Absolute Neutrophil Count 5.08 10^3/uL (1.2-6.7); Basophils % 0.2; Eosinophils % 2.3; HCT 36.3 % (40.0-50.0); HGB 11.7 g/dL (13.5-17.5); Immature Grans % 0.3; Lymphocytes % 7.7; MCH 29.3 pg (27.0-33.0); MCHC 32.2 % (32.0-36.0); MPV 8.8 fL (8.0-11.0); Monocytes % 11.5; Nucleated RBC 0 %; Platelet Count 255 10^3/uL (130-400); RBC 3.99 10^6/uL (4.36-5.78); RDW 13.2 % (11.8-14.1); RDW-SD 45.1 fL; WBC 6.51 10^3/uL (4.4-10.8)
[2021-08-05 07:14] VITALS: BP 105/58; PULSE 79; RESP 18; TEMP 37.2; O2SAT 97
[2021-08-05 07:22] LABS: Anion Gap 6.5 mmol/L (3-11); BUN 7 mg/dL (7-18); C-Reactive Protein 6.74 mg/dL (0.0-0.3); CO2 26.5 mmol/L (21.0-32.0); CREATININE 0.6 mg/dL (0.70-1.30); Calcium 8.1 mg/dL (8.5-10.1); Chloride 105 mmol/L (98-107); Glucose 115 mg/dL (74-106); Magnesium 1.8 mg/dL (1.8-2.4); Sodium 138 mmol/L (136-145)
--- NOTE | 2021-08-05 08:00 | DI.US_ITS ---
APPROVED REPORT EXAM: Comprehensive 2D, Doppler, and color-flow Echocardiogram Patient Location: In-Patient Flat Sorting Machine Clerk: Amalia Singh RDCS (AE) Indications: Suspected endocarditis Other Information Study Quality: Good Conclusion Normal left ventricular wall thickness and chamber size. Estimated ejection fraction is 60%. Wall m otion is normal Normal right ventricular size and systolic function Both atria are normal in size There is no structural or hemodynamically significant valvular disease No valvular vegetations were identified Wall motion Left Ventricle The left ventricle is normal size. The left ventricular systolic function is normal. The left ventric ular ejection fraction is within the normal range. There is normal left ventricular wall thickness. T here is normal LV segmental wall motion. There is no ventricular septal defect visualized. LVEF is 60 %. Right Ventricle The right ventricle is normal size. The right ventricular systolic function is normal. Atria The left atrium size is normal. The right atrium size is normal. The interatrial septum is intact wit h no evidence for an atrial septal defect. Aortic Valve The aortic valve is normal in structure. Aortic valve is trileaflet. There is no aortic valvular sten osis. No aortic regurgitation is present. There is no aortic valvular vegetation. Mitral Valve The mitral valve is normal in structure. No evidence of mitral valve stenosis. Trace mitral regurgita tion. There is no evidence of mitral valve vegetations. Tricuspid Valve The tricuspid valve is normal in structure. There is no tricuspid valve stenosis. Trace tricuspid reg urgitation. Unable to assess PA pressure. There is no tricuspid valve vegetations. Pulmonic Valve The pulmonary valve is normal in structure. There is no pulmonic valvular stenosis. Trace pulmonic re gurgitation. Great Vessels The aortic root is normal in size. The ascending aorta is normal in size. Aortic arch is normal in ca liber. IVC is normal in size and collapses >50% with inspiration. Pericardium There is no pericardial effusion. 2D Dimensions IVSD d PLAX 1.01 cm M: 0.6-1.2 LV Vol A2C d MOD 158.8 mL LVPW d PLAX 1.03 cm M: 0.6 - 1.2 LV Vol A4C d MOD 129.2 mL LVID d PLAX 4.79 cm M: 4.2 - 5.8 LA vol/ BSA A2C s A-L 28.6 mL/m2 LVDs 3.25 cm M: 2.5 - 4.0 LA vol/ BSA A4C s A-L 19.8 mL/m2 Ao Root d 3.00 cm M: 3.1 - 3.7 LA Vol/ BSA Biplane s A-L 23.9 mL/m2 RA Area A4C 13.69 cm2 LA Area A4C s MOD 15.01 cm2 RA Vol/ BSA A4C s A-L 20.4 mL/m2 LA Area A2C s MOD 18.15 cm2 Ao Asc Diam d 2.63 cm M: 2.6 - 3.4 LV EF A4C MOD 60.6 % LV EF Teichholz 59.4 % LV EF A2C MOD 59.1 % LVEF (Mayo's) 61.32 % M: 52 - 72 LV EF Biplane MOD 61.3 % LV Volume 113.61 mL M: 62 - 150 SV 92.06 mL LV Volume Index 58.56 mL/m2 M: 34 - 74 SV Index 47.26 mL/m2 LV Vol Biplane MOD 150.1 mL FS 31.50 % M-Mode TAPSE 2.28 cm (M/F) >1.7 LV Diastology MV E' medial 0.104 (>0.07 m/s) E/A Ratio 1.6 LV E/e MED 9.10 (<14) MV E Vmax 0.95 (0.4-1.3 m/s) MV E' lateral 0.199 (>0.1 m/s) MV A Vmax 0.60 (0.4-1.3 m/s) LV E/e LAT 4.75 (<14) MV E/A Ratio 1.48 MV E/E' medial 9.10 MV E/E' lateral 4.77 Aortic Valve LVOT Area 3.64 cm2 AoV Area Vmax 3.21 cm2 LVOT Vmax 1.18 m/s AoV Area/ BSA (Vmax) 1.65 cm2/m2 LVOT Mean Robinson. 0.71 m/s NA Mean Robinson. 2.72 cm2 LVOT Peak Grad 5.6 mmHg NA Mean Robinson. Index 1.40 cm2/m2 LVOT Mean Grad 2.5 mmHg LVOT VTI 0.249 m LVOT Diam s 2.15 cm AoV Vmax 1.34 m/s Velocity Ratio 0.88 AoV Mean Robinson. 0.95 m/s AoV Peak Grad 7.2 mmHg LVOT SV 90.72 mL AoV Mean Grad 4.0 mmHg AoV VTI 0.252 m AoV Area VTI 3.60 cm2 AoV Area/ BSA (VTI) 1.85 cm/m2 Mitral Valve MV DT 217 (160-240 msec) MV PHT 63 msec MV Area PHT 3.50 cm2 MV VTI 0.275 m MV Area VTI 3.29 (4.0-6.0 cm2) Pulmonary Valve PV Vmax 1.03 (0.5-1.5 m/s) RVOT Peak Gr. 2.46 mmHg PV Peak Grad 4.2 mmHg RVOT Mean Gr. 1.25 mmHg PV Mean Grad 2.6 mmHg RVOT VTI 0.185 m PV VTI 0.245 m RVOT Vmax 0.78 m/s
[2021-08-05] MEDS: Methadone Liquid 10 MG/ML 60 MG PO (08:46)
[2021-08-05] MEDS: VANCOMYCIN/WATER (PEG) 1.5 GM/300 ML BAG IV ×3 (08:47→23:46)
--- NOTE | 2021-08-05 10:03 | PDOC.CMIN ---
- If Service Date Differs Date of service: 08/05/21 Time of Service: 10:03 Care Management Initial Assess REASON FOR HOSPITALIZATION:: Cellulitis, developing abscess on back PAST MEDICAL HISTORY/PAST SURGICAL HISTORY:: Medical History (Updated 08/04/21 @ 18:55 by Kristin Watkins MD). Bacteremia. Depression. Hepatitis C. Opioid abuse. Osteomyelitis of right hip. PRITI: trying to stabilize on methadone-prior to admission smoked crack. Current every day tobacco smoker. Marijuana. IV Heroin use. Mr Key is a 30 year old male with PMHx of IVD abuse, prior episode of bacteremia and R hip osteomyelitis treated at [facility] with vancomycin (the patient is not sure which organism), as well as hepatitis C, opioid dependence on methadone through [facility] who presented to [facility] ED today c/o 2-3 days of malaise, subjective fevers/chills, and a painful lesion on his back. He last used IV fentanyl 2 days ago and smokes crack cocaine. He states that he used a clean needle and syringe. In the ED, he had a temperature of 100.4, per provider, and had a leucocytosis. He had multiple scabbed over leasions on BUEs as well as on his thorax and one maturing abscess on his back. Had MRSA a 1 month ago-treated with IV antibiotics at [facility]. Has another sore in the center of his back-has been there for 1 week-thinks the MRSA is back. 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 is trying to get stabilized on methadone. PREVIOUS FUNCTIONAL STATUS/SOCIAL/FAMILY SUPPORTS:: Ren resides in [place], and is independent at baseline in the community. ADVANCE DIRECTIVES:: None on file. Has patient been provided with info about the portal/API?: Yes Did the patient sign up for the portal?: No CODE STATUS:: Full Code INSURANCE COVERAGE / FINANCIAL ISSUES:: Medicaid CURRENT HOME/COMMUNITY SERVICES/EQUIPMENT:: Methadone clinic in [facility]--no doses x 1 week. 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 PATIENT/FAMILY EDUCATION NEEDS:: Review discharge instructions, discuss Ask Me Three. ANTICIPATED BARRIERS TO DISCHARGE:: None identified at this time. TRANSPORTATION:: Via private vehicle with [id number]. PLAN:: Ren continues to be closely monitored and treated. Per MD, currently ruling out bacteremia/endocarditis; continue IV ABX. Awaiting blood cultures, ECHO, CRP trending. Back abscess-anticipate I&D consult. He will continue outpatient methadone, which will need to resume upon discharge; CM will support coordination.
--- NOTE | 2021-08-05 12:05 | PHACLINREV_ITS ---
Pharmacy Admission Review - Admission Clinical Review (Last Updated 08/04/21 @ 18:51 by Kristin Watkins MD) Discharge planning issues (Acute) DVT prophylaxis (Acute) IV drug abuse (Acute) Cellulitis (Acute) Sepsis (Acute) codeine Allergy (Unverified 08/04/21 12:04) Itching Resuscitation Status Full Code Height 5 ft 10.08 in Weight 77.2 kg - Renal Dosing Renal Dosing: BUN 7 mg/dL (7-18) 08/05/21 06:29 Creatinine 0.6 mg/dL (0.70-1.30) L 08/05/21 06:29 Medications needing adjustments: Reviewed (SCr: 0.6, eCrCl: 141 mL/min. All medications dosed appropriately.) - Anticoagulation Anticoagulation: Hgb 11.7 g/dL (13.5-17.5) L 08/05/21 06:29 Hct 36.3 % (40.0-50.0) L 08/05/21 06:29 Plt Count 255 10^3/uL (130-400) 08/05/21 06:29 Creatinine 0.6 mg/dL (0.70-1.30) L 08/05/21 06:29 DVT Prophylaxis: N/A (Ambulatory, not required.) - Opiate Usage Evaluate Pain Scale/Pains Meds: Reviewed (Pain scale ratings 0-7, no opiates ordered - patient is on maintenance Methadone.) Scheduled Bowel Reg ordered if on Opiates?: No (Docusate, MOM PRN) - Relevant Labs ESR 26 mm/hr (0-15) H 08/04/21 14:49 Sodium 138 mmol/L (136-145) 08/05/21 06:29 Potassium 4.0 mmol/L (3.5-5.1) 08/05/21 06:29 Chloride 105 mmol/L (98-107) 08/05/21 06:29 Magnesium 1.8 mg/dL (1.8-2.4) 08/05/21 06:29 C-Reactive Protein 6.74 mg/dL (0.0-0.3) H 08/05/21 06:29 Electrolytes, C-Reactive P, ESR: Reviewed - DM Control DM Control: Glucose 115 mg/dL (74-106) H 08/05/21 06:29 Insulin Dosing: N/A - Heart Failure/LA EF%, SUHA's, B-Blockers, Diuretics: N/A - BP Control BP Control: Blood Pressure 105/58 If elevated: Reviewed - Qtc Review If Elevated: N/A (QTc: 439 on admission.) - IV to PO Switch IV Medications: Reviewed - Home Meds Home Med List reviewed: Reviewed (Methadone 60mg daily per [facility]. Last dose administered 08/04/21 at 0920. No other home medications listed.) - Current meds Current Medication Order Review: Reviewed - Comments Comments/Follow Ups: Continue to monitor vancomycin trough, labs, vitals and for medication changes. Antibiotic Activity - Pharmacy Antibiotic Review Pharmacy Antibiotic Activity: Reviewed, no change (Vancomycin 1500mg Q8H (day 2), Ceftriaxine 2gm (day 2))
[2021-08-05 12:30] VITALS: BP 118/68; PULSE 76; RESP 18; TEMP 37; O2SAT 99
[2021-08-05 15:36] LABS: Vancomycin, Trough 16.2 ug/mL (10.0-20.0)
--- NOTE | 2021-08-05 15:51 | PGE_ITS ---
Date of Service Date of service: 08/05/21 Time of Service: 15:51 Assessment and Plan Assessment and plan (1) Sepsis: Status: Acute Assessment and plan: Due to cellulitis of BUEs as well as abscess on back (superficial). Await blood culture results. Echo (TTE) without evidence of valvular disease. Continue empiric vancomycin/ceftriaxone. Await blood cultures. Trend CRP. (2) Cellulitis: Status: Acute Assessment and plan: As above Additionally, maturing abscess on the back may require an I&D, though this looks less likely today. (3) IV drug abuse: Status: Acute Assessment and plan: The patient is Hep C positive. He politely declined HIV testing. Continue outpatient methadone. Hep C is not treated and will need outpatient follow up. (4) Opioid abuse: Assessment and plan: As above Continue methadone (on it through [facility]). (5) DVT prophylaxis: Status: Acute Assessment and plan: Not required in an ambulatory 30 year old male (6) Discharge planning issues: Status: Acute Assessment and plan: Full code Continues to require hospitalization. Subjective Subjective Interval history since last seen: Mr Key feels better today, he states. He did have a fever of 40.2 last night. His blood cultures are not back yet. Denies dizziness, chest pain, shortness of breath, nausea. Exam Narrative Exam Narrative: General: Very pleasant male, looks better overall, resting when I arrive, wakes up easily HEENT: EOMI, MMM Cardiovascular: RRR, no m/r/g Lungs: CTAB Back: maturing abscess on back actually looks better, less indurated/rasied. Gastrointestinal: soft,nontender, nondistended Extremities: BUEs with scabbed over erythematous lesions; no lesions on lower extremities, no splinter hemorrhages/janeway lesions/hanna spots, +1 pedal pulses, no e/c/c. Objective Last Vital Signs Temp 37.0 C 08/05/21 12:30 Pulse 76 08/05/21 12:30 Resp 18 08/05/21 12:30 BP 118/68 08/05/21 12:30 Pulse Ox 99 08/05/21 12:30 Laboratory Results - last 24 hr 08/04/21 08/05/21 08/05/21 13:15 06:29 06:29 WBC 6.51 D RBC 3.99 L Hgb 11.7 L Hct 36.3 L MCV 91.0 MCH 29.3 MCHC 32.2 RDW 13.2 Plt Count 255 MPV 8.8 Immature Gran % 0.3 Neutrophils % 78.0 Lymphocytes % 7.7 Monocytes % 11.5 Eosinophils % 2.3 Basophils % 0.2 Nucleated RBC % 0 Absolute Neutrophils 5.08 Absolute Lymphocytes 0.50 L Absolute Monocytes 0.75 Absolute Eosinophils 0.15 Absolute Basophils 0.01 Sodium 138 Potassium 4.0 Chloride 105 Carbon Dioxide 26.5 Anion Gap 6.5 BUN 7 Creatinine 0.6 L Estimated GFR/1.73 m2 >= 60.00 Glucose 115 H Calcium 8.1 L Magnesium 1.8 C-Reactive Protein 6.74 H Procalcitonin < 0.1 Vancomycin Trough 08/05/21 15:05 WBC RBC Hgb Hct MCV MCH MCHC RDW Plt Count MPV Immature Gran % Neutrophils % Lymphocytes % Monocytes % Eosinophils % Basophils % Nucleated RBC % Absolute Neutrophils Absolute Lymphocytes Absolute Monocytes Absolute Eosinophils Absolute Basophils Sodium Potassium Chloride Carbon Dioxide Anion Gap BUN Creatinine Estimated GFR/1.73 m2 Glucose Calcium Magnesium C-Reactive Protein Procalcitonin Vancomycin Trough 16.2 Objective Narrative Objective Narrative: Echo: Normal left ventricular wall thickness and chamber size.? Estimated ejection fraction is 60%.? Wall motion is normal Normal right ventricular size and systolic function Both atria are normal in size There is no structural or hemodynamically significant valvular disease No valvular vegetations were identified
[2021-08-05 16:00] VITALS: BP 95/57; PULSE 65; RESP 20; TEMP 37; O2SAT 97
[2021-08-05] MEDS: cefTRIAXone 2 GM/50 ML BAG IVPB (17:33)
[2021-08-05 20:33] VITALS: BP 106/65; PULSE 71; RESP 18; TEMP 37.2; O2SAT 98
[2021-08-05] MEDS: Normal Saline Flush 10 ML SYR IVP (23:44)
[2021-08-06] VITALS (7 sets, daily range): BP systolic 99–121; BP diastolic 55–70; PULSE 57–75; RESP 16–18; TEMP 36.2–36.8; O2SAT 96–99
[2021-08-06 07:50] LABS: Absolute Basophil Count 0.01 10^3/uL (0.0-0.2); Absolute Eosinophil Count 0.26 10^3/uL (0.0-0.7); Absolute Lymphocyte Count 0.65 10^3/uL (1.2-3.4); Absolute Monocyte Count 0.46 10^3/uL (0.1-0.8); Absolute Neutrophil Count 3.29 10^3/uL (1.2-6.7); Basophils % 0.2; Eosinophils % 5.6; HCT 39.8 % (40.0-50.0); HGB 13.3 g/dL (13.5-17.5); Lymphocytes % 13.9; MCH 29.9 pg (27.0-33.0); MCHC 33.4 % (32.0-36.0); MCV 89.4 fL (80-95); MPV 8.8 fL (8.0-11.0); Monocytes % 9.9; Neutrophils % 70.4; Nucleated RBC 0 %; Platelet Count 297 10^3/uL (130-400); RBC 4.45 10^6/uL (4.36-5.78); RDW 13.3 % (11.8-14.1); RDW-SD 44.2 fL; WBC 4.67 10^3/uL (4.4-10.8)
[2021-08-06] MEDS: VANCOMYCIN/WATER (PEG) 1.5 GM/300 ML BAG IV ×3 (07:55→23:21)
[2021-08-06] MEDS: Normal Saline Flush 10 ML SYR IVP ×3 (07:55→23:21)
[2021-08-06 08:06] LABS: Anion Gap 6.2 mmol/L (3-11); BUN 7 mg/dL (7-18); C-Reactive Protein 4.31 mg/dL (0.0-0.3); CO2 28.8 mmol/L (21.0-32.0); CREATININE 0.7 mg/dL (0.70-1.30); Calcium 9.1 mg/dL (8.5-10.1); Chloride 103 mmol/L (98-107); Glucose 101 mg/dL (74-106); Magnesium 1.8 mg/dL (1.8-2.4); Potassium 4.2 mmol/L (3.5-5.1); Sodium 138 mmol/L (136-145)
[2021-08-06] MEDS: Methadone Liquid 10 MG/ML 60 MG PO (08:09)
--- NOTE | 2021-08-06 10:16 | PDOC.CMDIS ---
- If Service Date Differs Date of service: 08/06/21 Time of Service: 10:16 LACE Index Scoring Tool - Questions: Length of Stay (in days): 2 Acuity (Admit via E.D.?): Yes E.D. Visits: 2 - Answers: Total Score: 7 Risk of Readmission: Low Risk Care Management Discharge Reason for Hospitalization: Cellulitis, developing abscess on back Discharge Plan: Ren will return home when ready, per MD. He will continue outpatient methadone, which will resume upon discharge. CM provided last dose letter. Patient/Family Education Needs: Review discharge instructions, PRITI supports, discuss Ask Me Three.
--- NOTE | 2021-08-06 12:22 | W.PM.DS.N ---
Date of service: 07/09/21 Time of Service: 11:20 DS: Diagnosis Discharge Diagnosis (1) Sepsis: Status: Resolved Asessment and Plan: Picture on admission c/w early SIRS/sepsis, but he turned around quickly o (2) Cellulitis: Status: Acute (3) IV drug abuse: Status: Acute (4) Opioid abuse: Discharge Plan Disposition Patient Disposition: HOME Condition: Good Discharge Details Reason For Visit: Cellulitis, developing abscess back Admit Date/Time: 08/04/21 15:30 Admit Provider: Kristin Watkins Attending Provider: Kristin Watkins Primary Care Provider: Arlin Gant Hospital Course Hospital Course: 30 yo M with opioid use disorder with IVDU, and h/o right hip osteomyelitis treated at [facility] s/p 6 weeks of antibiotic therapy (started ceftriaxone/vancomycin, then daptomycin) presented with 2-3 days of malaise, chills and painful lesion on his back, fever of 100.4 in ED. He was given Pip/tazo and Vacno in the ED, continued on IV ceftriaxone and vancomycin. He improved clinically with resolution of chills, no fevers, good appetite. CRP trended down from 7.34 to 4.31. WBC decreased from 13.87 to 4.67. COVID negative. Procalcitonin negative. Transthoracic echocardiogram normal. No pain with ROM of previously infected hip. MRSA screen of nose negative. What appeared to be a developing abscess on his back improved without I&D, no abscess palpable on day of discharge, other red patches on skin improving. He was discharged after blood cultures were negative for 48 hours on cephalexin and TMP/SMX orally for another 7 days. He will follow up with [facility] for treatment of OUD. Dr. Srinivasan also discussed follow up for outpatient hepatitis C treatment. He is staying in the hospital overnight until 08/07/21 so he can get his morning methadone dose. Home Meds and New Rx's Prescriptions: No Action methadone 10 mg/mL Solution 60 mg DAILY 0RF Discharge Instructions Instructions: Cellulitis (DC) Stand Alone Forms: Nursing Discharge Form Referrals: Arlin Gant [Primary Care Provider] - (Please call Sunday to make a follow up appointment) Activity:: Activity as Tolerated Equipment/Supplies:: No Equipment Needed Diet:: As Tolerated Discharge Orders Discharge Orders: Discharge Order (Routine); Ordered 08/07/21 Ordered By: Kristin Watkins Discharge Data Discharge Date/Time-TO BE ENTERED AT DEPARTURE: 08/07/21 09:00 DS: Summary Time Spent with Patient providing and/or coordinating discharge services: Greater than 30 minutes Status at Discharge Functional status at discharge: independent ambulation Overall status at discharge: patient is progressing back to baseline Mental Status: mental status grossly normal Speech and Movement: speech and movement normal Mood: congruent mood Affect: normal affect Exam Narrative Exam Narrative: General:? Very pleasant male, NAD HEENT: EOMI, pupils 3mm room light, MMM Cardiovascular: RRR, no m/r/g Lungs: CTAB, normal effort Back: 3cm induration/redness abscess on back, no fluctuance, mildly tender Gastrointestinal: soft,nontender, nondistended Extremities: BUEs with scabbed over erythematous lesions; no lesions on lower extremities, no splinter hemorrhages/janeway lesions/hanna spots, +1 pedal pulses, no e/c/c. Psych Mental Status: mental status grossly normal Speech and Movement: speech and movement normal Mood: congruent mood Affect: normal affect DS: Data Vitals/I&O Vitals and I&O: Vital Signs Temperature 36.4 C L 08/06/21 07:18 Temperature Source Tympanic 08/06/21 07:18 Pulse 70 08/06/21 07:18 Pulse Rhythm Regular 08/06/21 08:19 Respiratory Rate 16 08/06/21 07:18 Respiratory Effort 08/06/21 08:19 Respiratory Depth Normal 08/06/21 08:19 Respiratory Pattern Normal 08/06/21 08:19 Blood Pressure 117/69 08/06/21 07:18 Blood Pressure Position Sitting 08/04/21 11:59 Pulse Oximetry 99 08/06/21 07:18 Oxygen Delivery Method Room Air 08/06/21 07:18 Oxygen Flow Rate 0 08/06/21 07:18 Pain Level 0 08/06/21 07:18 Comment 08/05/21 16:00 Intake & Output 08/05/21 08/06/21 08/06/21 23:59 11:59 23:59 Intake Total 2198.75 / 4638.75 300 / 300 Balance 2198.75 / 4638.75 300 / 300 Weight 76.4 kg Intake: IV 1718.75 / 3318.75 300 / 300 Oral 480 / 1320 Other: Comment pT stated he used the bathroom. pT voids independently Voiding Methods Toilet Toilet Data Completed and Pending Labs on day of discharge: Labs from last 24 hours 08/06/21 08/06/21 08/05/21 07:35 07:35 15:05 WBC 4.67 RBC 4.45 Hgb 13.3 L Hct 39.8 L MCV 89.4 MCH 29.9 MCHC 33.4 RDW 13.3 Plt Count 297 MPV 8.8 Immature Gran % 0.0 Neutrophils % 70.4 Lymphocytes % 13.9 Monocytes % 9.9 Eosinophils % 5.6 Basophils % 0.2 Nucleated RBC % 0 Absolute Neutrophils 3.29 Absolute Lymphocytes 0.65 L Absolute Monocytes 0.46 Absolute Eosinophils 0.26 Absolute Basophils 0.01 Sodium 138 Potassium 4.2 Chloride 103 Carbon Dioxide 28.8 Anion Gap 6.2 BUN 7 Creatinine 0.7 Estimated GFR/1.73 m2 >= 60.00 Glucose 101 Calcium 9.1 Magnesium 1.8 C-Reactive Protein 4.31 H Vancomycin Trough 16.2 Preliminary micro results at discharge 08/04/21 15:09 Blood Culture - Preliminary Blood NO GROWTH 24 HOURS 08/04/21 15:00 Blood Culture - Preliminary Blood NO GROWTH 24 HOURS 08/04/21 14:49 Blood Culture - Preliminary Blood NO GROWTH 24 HOURS PFSH All Active Problems (Updated 08/08/21 @ 00:05 by MARIIA WILLIS) IV drug abuse (Acute) Cellulitis (Acute) Opiate withdrawal (Acute) Medication requested (Acute) Medical History Bacteremia Depression Hepatitis C Opioid abuse Osteomyelitis of right hip Surgical History No history of previous surgery Social History (Updated 08/06/21 @ 12:25 by Isak Srinivasan) Smoking/Tobacco Use Status: Current every day Tobacco Type: cigarettes Smoking risk assessment performed?: Yes Alcohol Intake: never Drug use: Daily Substance use type: marijuana, crack/cocaine and heroin Details: Methadone clinic in [facility]--no doses x 1 week Suboxone clinic --off 2 years Do you feel safe at home: Yes Do you feel safe in your relationship?: Yes 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
[2021-08-06] MEDS: cefTRIAXone 2 GM/50 ML BAG IVPB (17:34)
[2021-08-06] MEDS: Acetaminophen 325 MG TAB PO (23:27)
[2021-08-07 04:11] VITALS: BP 107/67; PULSE 66; RESP 20; TEMP 36.6; O2SAT 100
[2021-08-07 07:22] LABS: Vancomycin, Trough 21.6 ug/mL (10.0-20.0)
[2021-08-07 08:05] VITALS: BP 132/81; PULSE 77; RESP 17; TEMP 36.8; O2SAT 99
[2021-08-07] MEDS: Methadone Liquid 10 MG/ML 60 MG PO (08:36)
== END 2021-08-07 09:00 | disposition home or self-care (01) | DRG 872 ==
LOC: ER 15:59 → MS 16:20
PROVIDERS: Admitting Provider Internal Medicine; Emergency Provider Physician Assistant; PCP Nurse Practitioner Family; Visit Provider Internal Medicine
DX: A41.9 Sepsis, unspecified organism (principal); L03.114 Cellulitis of left upper limb; L03.113 Cellulitis of right upper limb; L02.212 Cutaneous abscess of back [any part, except buttock and flank]; F32.A Depression, unspecified; F17.210 Nicotine dependence, cigarettes, uncomplicated; F12.90 Cannabis use, unspecified, uncomplicated; B19.20 Unspecified viral hepatitis C without hepatic coma; F14.10 Cocaine abuse, uncomplicated; F11.10 Opioid abuse, uncomplicated
CPT/HCPCS: 36415; 80048; 80053; 84145; 85652; 87040; 87081; 87635; 93005; 93306; 96361; 96365; 96367; 96375; 99285; 71045; 80202; 83605; 83735; 85025; 86140; 93010; 99223; 99232; J1885; J2543

== ENCOUNTER 2021-08-15 11:04 | Observation (INO) | payer MEDICAID, SELFPAY ==
[2021-08-15 11:15] VITALS: BP 134/81; PULSE 77; RESP 20; TEMP 36.2; O2SAT 97
[2021-08-15 11:45] LABS: Bilirubin Negative (Negative); Blood Negative (Negative); Clarity Clear (Clear); Glucose Negative (Negative); Ketones Negative (Negative); Leukocyte Esterase Negative (Negative); Nitrite Negative (Negative); Specific Gravity >= 1.030 (1.005-1.025); Urobilinogen 0.2 EU/dL (Up TO 0.2); pH 6.5 (5-8)
[2021-08-15 11:54] LABS: *AMPHETAMINES SCREEN URINE Positive (Negative); *BARBITURATES SCREEN URINE Negative (Negative); *BENZODIAZEPINES SCREEN URINE Negative (Negative); Cannabinoids THC Positive (Negative); Cocaine Screen,Urine Positive (Negative); METHADONE URINE SCREEN Positive (Negative); OPIATES URINE SCREEN Negative (Negative)
[2021-08-15 12:02] LABS: Tricyclic Antidepressants Negative (Negative)
--- NOTE | 2021-08-15 15:58 | ED.GENADUL_ITS ---
Discharge Plan Disposition Patient Disposition: [facility] INPATIENT Condition: Stable Discharge Details Clinical Impression: Depression Admit Date/Time: 08/15/21 22:18 Admit Provider: Ethan Boykin Attending Provider: Ethan Boykin Primary Care Provider: Arlin Gant ED Provider: Andrew Johns Discharge Data Discharge Date/Time-TO BE ENTERED AT DEPARTURE: 08/15/21 22:03 Medical Decision Making Ren Key is a 31-year-old man with a history of substance use disorder, depression presenting to emergency department with suicidality. Patient reports that 2 days ago he tried to kill himself by overdosing on IV fentanyl. Patient reports that he feels very depressed and hopeless due to his substance use, and feels hopeless and that there is no point for him to be alive anymore. Patient states that he uses crack cocaine and opiates frequently. Patient reports that he is on methadone currently. He denies fever, any pain, vomiting, diarrhea, numbness, weakness, shortness of breath, cough. Denies any physical complaint. He denies any other attempt to harm himself, no ingestions. On exam patient is well nontoxic-appearing. He is suicidal without hallucinations, agitation, or stephon. Concern for depression, substance use disorder, suicidality, other. Exam/history at this time is not consistent with acute intoxication, acute overdose, sepsis, metabolic/lyte derangement, other nonpsychiatric acute emergent medical condition. Plan for consultation with mental health for voluntary inpatient placement. Mental health is in agreement that patient is appropriate for voluntary inpatient placement. Pending placement at this time. Patient signed out to Dr. Johns at time of shift change with inpatient placement pending. Lab Data Lab results reviewed: Yes I reviewed the patient's lab results. Labs: Laboratory Results - last 24 hr 08/15/21 08/15/21 08/15/21 11:30 11:30 17:00 WBC RBC Hgb Hct MCV MCH MCHC RDW Plt Count MPV Immature Gran % Neutrophils % Lymphocytes % Monocytes % Eosinophils % Basophils % Nucleated RBC % Absolute Neutrophils Absolute Lymphocytes Absolute Monocytes Absolute Eosinophils Absolute Basophils Sodium 139 Potassium 3.9 Chloride 103 Carbon Dioxide 31.7 Anion Gap 4.3 BUN 10 Creatinine 0.9 Estimated GFR/1.73 m2 >= 60.00 Glucose 97 Calcium 8.8 Total Bilirubin 0.3 AST 81 H ALT 157 H Alkaline Phosphatase 94 Total Protein 7.2 Albumin 3.4 TSH 0.32 L Free T4 1.05 Urine Color Yellow Urine Clarity Clear Urine pH 6.5 Ur Specific [place] >= 1.030 H Urine Protein Negative Urine Ketones Negative Urine Blood Negative Urine Nitrite Negative Urine Bilirubin Negative Urine Urobilinogen 0.2 Ur Leukocyte Esterase Negative Urine Glucose Negative Salicylates Urine Opiates Screen Negative Urine Methadone Screen Positive A Acetaminophen Ur Barbiturates Screen Negative Ur Tricyclics Screen Negative Ur Amphetamines Screen Positive A U Benzodiazepines Scrn Negative Urine Cocaine Screen Positive A Ur THC Screen Positive A Ethyl Alcohol < 3.0 08/15/21 08/15/21 17:00 17:00 WBC 5.13 RBC 4.16 L Hgb 12.1 L Hct 36.3 L MCV 87.3 MCH 29.1 MCHC 33.3 RDW 13.3 Plt Count 329 MPV 8.5 Immature Gran % 0.0 Neutrophils % 33.6 Lymphocytes % 52.0 Monocytes % 11.9 Eosinophils % 2.3 Basophils % 0.2 Nucleated RBC % 0 Absolute Neutrophils 1.72 Absolute Lymphocytes 2.67 Absolute Monocytes 0.61 Absolute Eosinophils 0.12 Absolute Basophils 0.01 Sodium Potassium Chloride Carbon Dioxide Anion Gap BUN Creatinine Estimated GFR/1.73 m2 Glucose Calcium Total Bilirubin AST ALT Alkaline Phosphatase Total Protein Albumin TSH Free T4 Urine Color Urine Clarity Urine pH Ur Specific [place] Urine Protein Urine Ketones Urine Blood Urine Nitrite Urine Bilirubin Urine Urobilinogen Ur Leukocyte Esterase Urine Glucose Salicylates < 2.8 Urine Opiates Screen Urine Methadone Screen Acetaminophen < 2 Ur Barbiturates Screen Ur Tricyclics Screen Ur Amphetamines Screen U Benzodiazepines Scrn Urine Cocaine Screen Ur THC Screen Ethyl Alcohol HPI General Date/Time Provider Initiated Documentation: 08/15/21 11:57 . HPI Narrative: Ren Key is a 31-year-old man with a history of substance use disorder, depression presenting to emergency department with suicidality. Patient reports that 2 days ago he tried to kill himself by overdosing on IV fentanyl. Patient reports that he feels very depressed and hopeless due to his substance use, and feels hopeless and that there is no point for him to be alive anymore. Patient states that he uses crack cocaine and opiates frequently. Patient reports that he is on methadone currently. He denies fever, any pain, vomiting, diarrhea, numbness, weakness, shortness of breath, cough. Denies any physical complaint. He denies any other attempt to harm himself, no ingestions. Related Data Home Medications Medication Instructions Recorded Confirmed methadone 10 mg/mL injection 70 mg DAILY 08/04/21 08/15/21 solution Allergies Allergy/AdvReac Type Severity Reaction Status Date / Time codeine Allergy Itching Unverified 08/15/21 11:24 General Stated Complaint: PsychEval JAMAL: 2 Review of Systems Narrative: Constitutional: denies fevers Eyes: denies eye pain ENT: denies ear pain, dental pain, sore throat Cardiovascular: denies chest pain Respiratory: denies SOB, cough GI: denies abdominal pain, vomiting, diarrhea : denies flank pain MSK: denies back pain, neck pain, arthralgias, myalgias Skin: denies wound Neuro: denies headaches, numbness, weakness Psych: Reports suicidality, denies homicidality, hallucinations PFSH All Active Problems IV drug abuse (Acute) Cellulitis (Acute) Opiate withdrawal (Acute) Medication requested (Acute) Medical History Bacteremia Depression Depression Hepatitis C Opioid abuse Osteomyelitis of right hip Surgical History No history of previous surgery Social History Smoking/Tobacco Use Status: Current every day Tobacco Type: cigarettes Smoking risk assessment performed?: Yes Alcohol Intake: never Drug use: Daily Substance use type: marijuana, crack/cocaine and heroin Do you feel safe at home: Yes Do you feel safe in your relationship?: Yes 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 Exam Narrative Exam Narrative: Constitutional: well and [id number], pleasant, conversing normally HENT: head atraumatic/normocephalic/normal inspection, mucous membranes moist Eyes: conjunctiva normal, sclera normal, pupils 3mm b/l Neck: no stridor, normal ROM, trachea midline Chest: normal inspection Resp: normal work of breathing Cardio: normal rate, normal rhythm Skin: warm, dry, normal color, scattered crusted ulcerations over forearms and face Neuro: alert, not altered, grossly non-focal, normal tone Ext: no edema Psych: normal mood, normal affect, suicidal thinking Course Vital Signs Vital signs: Vital Signs Temperature 36.2 C L 08/15/21 11:15 Pulse 77 08/15/21 11:15 Respiratory Rate 20 08/15/21 11:15 Blood Pressure 134/81 08/15/21 11:15 Pulse Oximetry 97 08/15/21 11:15 Temperature 36.2 C L 08/15/21 11:15 Temperature Source Temporal Artery Scan 08/15/21 11:15 Pulse 77 08/15/21 11:15 Respiratory Rate 20 08/15/21 11:15 Respiratory Effort Non-Labored 08/15/21 11:25 Blood Pressure 134/81 08/15/21 11:15 Blood Pressure Position Sitting 08/15/21 11:15 Pulse Oximetry 97 08/15/21 11:15 Oxygen Delivery Method Room Air 08/15/21 11:15 Oxygen Flow Rate 0 08/15/21 11:15 Pain Level 2 08/15/21 11:15 Comment 08/15/21 11:15 Lab/Test Results Lab/Test Results: Laboratory Tests Range/Units 08/15/21 08/15/21 11:30 11:30 Urine Color (Yellow) Yellow Urine Clarity (Clear) Clear Urine pH (5-8) 6.5 Ur Specific [place] (1.005-1.025) >= 1.030 H Urine Protein (Negative) mg/dL Negative Urine Ketones (Negative) mg/dL Negative Urine Blood (Negative) Negative Urine Nitrite (Negative) Negative Urine Bilirubin (Negative) Negative Urine Urobilinogen (Up TO 0.2) EU/dL 0.2 Ur Leukocyte Esterase (Negative) Negative Urine Glucose (Negative) mg/dL Negative Urine Opiates Screen (Negative) Negative Urine Methadone Screen (Negative) Positive A Ur Barbiturates Screen (Negative) Negative Ur Tricyclics Screen (Negative) Negative Ur Amphetamines Screen (Negative) Positive A U Benzodiazepines Scrn (Negative) Negative Urine Cocaine Screen (Negative) Positive A Ur THC Screen (Negative) Positive A Sign Out Sign Out Data: Sign Out Comment: Patient signed out to Dr. Johns at time of shift change with inpatient placement pending for suicidality, patient is voluntary. Last updated by Maria Esther Louis MD at 08/15/21 16:37
--- NOTE | 2021-08-15 16:59 | CMSP_ITS ---
- If Service Date Differs Date of service: 08/15/21 Time of Service: 16:59 Care Management Safety Plan Status: Voluntary - Reason for Wait Reason for Wait: Inpatient Admission VOLUNTARY FOR INPATIENT PSYCHIATRIC STABILIZATION. Patient is appropriate in all interactions since arriving at [facility]; Pt has demonstrated appropriate coping and communication skills, has articulated his needs and concerns and is fully engaged during staff interactions. Safety plan has been established with patient, and care team, to adhere to patient goals, identify restrictions based on behavioral status, address nutrition, and determine allowed personal belongings, tools for hygiene and personal care. Determine level of activity including ambulation, level of supervision, visitors, and determine privileges based on behaviors and level of engagement by pt. SAFETY PLAN: 1. Will remain on suicide precautions. In Paper Clothes 2. Will remain in room under direct supervision of one-on-one staff at all times provided by [employer]; JOHNNIE, FORGING DIE FINISHER senior integration architect. 3. May have paper cups, plates, finger foods as well as a cardboard spoon with which to eat meals. 4. Follow [facility] Management of the Admitted Behavioral Health Patient policy. 5. Comfort bath system only, shower permitted with escort at RN discretion. 6. No personal belongings-soft items permitted at RN discretion. 7. Visitors at RN discretion. 8. Activities: soft cart items approved per RN discretion. 9. Bathroom privileges with escort in the ED, available in room without limitation on M/S. 10. Phone: incoming/outgoing calls via cordless phone at RN discretion. 11. Due to VOLUNTARY status, if patient wishes to leave [facility], staff will contact [facility] Crisis Screener ([phone]) and On-Call Big Data Hadoop Developer ([phone]) as soon as possible. In the event of elopement, notify [facility] Police ([phone]). Patient is currently voluntarily at [facility] and seeking inpatient admission when a bed becomes available. [facility] Frontline Dermatology Nurse will continue seeking placement. Please contact the Nuclear Monitoring Technician Big Data Hadoop Developer ([phone]) and [facility] Dermatology Nurse ([phone]) for any needed changes in the Safety Plan. Safety plan has been provided to interdepartmental care team.
[2021-08-15 17:19] LABS: Absolute Basophil Count 0.01 10^3/uL (0.0-0.2); Absolute Eosinophil Count 0.12 10^3/uL (0.0-0.7); Absolute Lymphocyte Count 2.67 10^3/uL (1.2-3.4); Absolute Monocyte Count 0.61 10^3/uL (0.1-0.8); Absolute Neutrophil Count 1.72 10^3/uL (1.2-6.7); Basophils % 0.2; Eosinophils % 2.3; HCT 36.3 % (40.0-50.0); HGB 12.1 g/dL (13.5-17.5); MCH 29.1 pg (27.0-33.0); MCHC 33.3 % (32.0-36.0); MCV 87.3 fL (80-95); MPV 8.5 fL (8.0-11.0); Monocytes % 11.9; Neutrophils % 33.6; Nucleated RBC 0 %; Platelet Count 329 10^3/uL (130-400); RBC 4.16 10^6/uL (4.36-5.78); RDW 13.3 % (11.8-14.1); RDW-SD 42.8 fL; WBC 5.13 10^3/uL (4.4-10.8)
[2021-08-15 17:40] LABS: ALT 157 U/L (16-63); AST 81 U/L (15-37); Albumin 3.4 g/dL (3.4-5.0); Alkaline Phosphatase 94 U/L (46-116); Anion Gap 4.3 mmol/L (3-11); BUN 10 mg/dL (7-18); Bilirubin, Total 0.3 mg/dL (0.2-1.0); CO2 31.7 mmol/L (21.0-32.0); CREATININE 0.9 mg/dL (0.70-1.30); Calcium 8.8 mg/dL (8.5-10.1); Chloride 103 mmol/L (98-107); Glucose 97 mg/dL (74-106); Potassium 3.9 mmol/L (3.5-5.1); Sodium 139 mmol/L (136-145); TSH (W/Ref FT4) 0.32 uIU/mL (0.36-3.74); Total Protein 7.2 g/dL (6.4-8.2)
[2021-08-15 17:52] LABS: Salicylate < 2.8 mg/dL (<2.8)
[2021-08-15 18:11] LABS: ETHANOL BLOOD < 3.0 mg/dL (<10)
[2021-08-15 18:17] LABS: Acetaminophen < 2 ug/mL (10-30)
[2021-08-15 19:19] LABS: FREE T4 1.05 ng/dL (0.76-1.46)
--- NOTE | 2021-08-15 21:06 | W.PM.HP.N ---
Date of service: 08/15/21 Time of Service: 21:06 Assessment and Plan Assessment and plan (1) Depression: Status: Chronic Assessment and plan: Depression with recent suicidal behavior. Will admit on precautions, await placement. Substance abuse: usual methadone 70 qd Tobacco: prn patch 21 mg Elevated TAs: trend for now, further w/u as indicated History of Present Illness History of Present Illness Chief Complaint: depression Narrative: 31 male with h/o substance abuse, on Methadone, and h/o depression, remotely on Zoloft. Repoirts he has been feeling more depressed lately, due to ongoing issues wiyth substance abuse, homelessness and general feelingt of hopelessness. 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 [facility] In [facility] w/u of note for minor elevations in transaminases AST 81, ALT 157) and UDS positive cocaine, THC, amphetamines and Methadone. Seen by Mental health, agrees to voluntary admission pending placement. medically cleared. I was asked to evaluate for admission. Patient states no drugs since 2 days ago, other than his prescribed Methadone, which he did have today. States he feels safe here. Denies h/o alcohol withdrawal. Review of Systems Narrative: per HPI PFSH All Active Problems Depression (Chronic) IV drug abuse (Acute) Cellulitis (Acute) Opiate withdrawal (Acute) Medication requested (Acute) Medical History Bacteremia Depression Hepatitis C Opioid abuse Osteomyelitis of right hip Surgical History No history of previous surgery Social History Smoking/Tobacco Use Status: Current every day Tobacco Type: cigarettes Smoking risk assessment performed?: Yes Alcohol Intake: never Drug use: Daily Substance use type: marijuana, crack/cocaine and heroin Do you feel safe at home: Yes Do you feel safe in your relationship?: Yes 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 HEENT atraumatic; neck supple; lungs clear; heart RRR; abdomen soft and NT; extemities w?o edema, numerous tack picker's nodules; neuro Ox3, flat affect, lucid, moves all 4s Results Labs Result diagrams: 08/15/21 17:00 08/15/21 17:00 Labs: Laboratory Results - last 24 hr 08/15/21 08/15/21 08/15/21 11:30 11:30 17:00 WBC RBC Hgb Hct MCV MCH MCHC RDW Plt Count MPV Immature Gran % Neutrophils % Lymphocytes % Monocytes % Eosinophils % Basophils % Nucleated RBC % Absolute Neutrophils Absolute Lymphocytes Absolute Monocytes Absolute Eosinophils Absolute Basophils Sodium 139 Potassium 3.9 Chloride 103 Carbon Dioxide 31.7 Anion Gap 4.3 BUN 10 Creatinine 0.9 Estimated GFR/1.73 m2 >= 60.00 Glucose 97 Calcium 8.8 Total Bilirubin 0.3 AST 81 H ALT 157 H Alkaline Phosphatase 94 Total Protein 7.2 Albumin 3.4 TSH 0.32 L Free T4 1.05 Urine Color Yellow Urine Clarity Clear Urine pH 6.5 Ur Specific [place] >= 1.030 H Urine Protein Negative Urine Ketones Negative Urine Blood Negative Urine Nitrite Negative Urine Bilirubin Negative Urine Urobilinogen 0.2 Ur Leukocyte Esterase Negative Urine Glucose Negative Salicylates Urine Opiates Screen Negative Urine Methadone Screen Positive A Acetaminophen Ur Barbiturates Screen Negative Ur Tricyclics Screen Negative Ur Amphetamines Screen Positive A U Benzodiazepines Scrn Negative Urine Cocaine Screen Positive A Ur THC Screen Positive A Ethyl Alcohol < 3.0 08/15/21 08/15/21 17:00 17:00 WBC 5.13 RBC 4.16 L Hgb 12.1 L Hct 36.3 L MCV 87.3 MCH 29.1 MCHC 33.3 RDW 13.3 Plt Count 329 MPV 8.5 Immature Gran % 0.0 Neutrophils % 33.6 Lymphocytes % 52.0 Monocytes % 11.9 Eosinophils % 2.3 Basophils % 0.2 Nucleated RBC % 0 Absolute Neutrophils 1.72 Absolute Lymphocytes 2.67 Absolute Monocytes 0.61 Absolute Eosinophils 0.12 Absolute Basophils 0.01 Sodium Potassium Chloride Carbon Dioxide Anion Gap BUN Creatinine Estimated GFR/1.73 m2 Glucose Calcium Total Bilirubin AST ALT Alkaline Phosphatase Total Protein Albumin TSH Free T4 Urine Color Urine Clarity Urine pH Ur Specific [place] Urine Protein Urine Ketones Urine Blood Urine Nitrite Urine Bilirubin Urine Urobilinogen Ur Leukocyte Esterase Urine Glucose Salicylates < 2.8 Urine Opiates Screen Urine Methadone Screen Acetaminophen < 2 Ur Barbiturates Screen Ur Tricyclics Screen Ur Amphetamines Screen U Benzodiazepines Scrn Urine Cocaine Screen Ur THC Screen Ethyl Alcohol Last Vital Signs Temp 36.2 C L 08/15/21 11:15 Pulse 77 08/15/21 11:15 Resp 20 08/15/21 11:15 BP 134/81 08/15/21 11:15 Pulse Ox 97 08/15/21 11:15
[2021-08-15 21:15] VITALS: BP 109/67; PULSE 51; RESP 18; TEMP 36.4; O2SAT 98
[2021-08-15 22:09] LABS: Source Nasal/Nares
[2021-08-15 22:34] VITALS: BP 117/70; PULSE 71; RESP 16; TEMP 35.7; O2SAT 99
[2021-08-15 23:04] LABS: COVID-19 PCR Negative (Negative)
[2021-08-16 06:34] LABS: ALT 147 U/L (16-63); AST 67 U/L (15-37)
[2021-08-16] MEDS: Methadone Liquid 10 MG/ML 70 MG PO (08:20)
[2021-08-16 08:56] VITALS: BP 114/63; PULSE 52; RESP 12; TEMP 36.5; O2SAT 100
--- NOTE | 2021-08-16 10:22 | PDOC.CMSAFE ---
- If Service Date Differs Date of service: 08/16/21 Time of Service: 10:22 Care Management Safety Plan Status: Voluntary - Reason for Wait Reason for Wait: Inpatient Admission VOLUNTARY FOR INPATIENT PSYCHIATRIC STABILIZATION. Patient is appropriate in all interactions since arriving at [facility]; Pt has demonstrated appropriate coping and communication skills, has articulated his needs and concerns and is fully engaged during staff interactions. Safety plan has been established with patient, and care team, to adhere to patient goals, identify restrictions based on behavioral status, address nutrition, and determine allowed personal belongings, tools for hygiene and personal care. Determine level of activity including ambulation, level of supervision, visitors, and determine privileges based on behaviors and level of engagement by pt. SAFETY PLAN: 1. Will remain on suicide precautions. In Paper Clothes 2. Will remain in room under direct supervision of one-on-one staff at all times provided by [employer]; JOHNNIE, INFORMATION TECHNOLOGY AUDITOR therapeutic program worker. 3. May have paper cups, plates, finger foods as well as a cardboard spoon with which to eat meals. 4. Follow [facility] Management of the Admitted Behavioral Health Patient policy. 5. Comfort bath system only, shower permitted with escort at RN discretion. 6. No personal belongings-soft items permitted at RN discretion. 7. Visitors at RN discretion. 8. Activities: soft cart items approved per RN discretion. 9. Bathroom privileges with escort in the ED, available in room without limitation on M/S. 10. Phone: incoming/outgoing calls via cordless phone at RN discretion. 11. Due to VOLUNTARY status, if patient wishes to leave [facility], staff will contact [facility] Crisis Screener ([phone]) and On-Call [employer] ([phone]) as soon as possible. In the event of elopement, notify [facility] Police ([phone]). Patient is currently voluntarily at [facility] and seeking inpatient admission when a bed becomes available. [facility] Frontline Graphic Design Intern will continue seeking placement. Please contact the Animal Stunner [employer] Hand ([phone]) and [facility] Graphic Design Intern ([phone]) for any needed changes in the Safety Plan. Safety plan has been provided to interdepartmental care team.
--- NOTE | 2021-08-16 12:05 | PDOC.MHCN ---
Date of service: 08/16/21 Time of Service: 12:05 Mental Health Crisis Note Presenting Issue How did you arrive at the ED and why did you come: wrong client
--- NOTE | 2021-08-16 12:44 | PDOC.MHCN ---
Date of service: 08/15/21 Time of Service: 13:20 Mental Health Crisis Note Presenting Issue How did you arrive at the ED and why did you come: Client arrived to ED on their own, Client reports on Sunday08/13/2021 he injected a lethal dose of fentanyl with the intent to by suicide. Client reports he does remember what happened after. Client reports a friend administered Narcan. Client did not seek medical attention immediately after. Client present at [facility] ED reporting daily, sustaining, active thoughts of SI with intent and plan to overdose on street drugs. Precipitating Factors Client reports persistent active thoughts of SI with intent and plan to overdose on street drugs. Client reports he is afraid of himself. Disposition BEHAVIOR: Cooperative. EYE CONTACT: Minimal. MOOD: Client reports bad. AFFECT: Unremarkable. APPETITE: Client reports until today his appetite has been bad. SLEEP(trouble falling/staying asleep: Client reports difficulties fallling asleep. Plan Client is voluntarily seeking psychiatric in patient treatment. Client reports he is afraid of himself and cannot be safety planned back into the community. Client reports he is looking for treatment for his mental health and needs to be at a facility where he can also continue to receive his methadone. Client is interested in starting on going therapy, referral will be made. Client referral for inpatient treatment is being sent to [facility] [place], [facility], [facility] and [facility]. Signature Clinician's Name/Title: Taj Dover BA
[2021-08-16] MEDS: Nicotine 21 MG/24 HR PATCH TD (14:25)
--- NOTE | 2021-08-16 14:36 | W.PM.DS.N ---
Date of service: 08/16/21 Time of Service: 14:36 DS: Diagnosis Discharge Diagnosis (1) Depression: Status: Chronic Discharge Plan Disposition Patient Disposition: [facility] Condition: Stable Discharge Details Reason For Visit: Depression Admit Date/Time: 08/15/21 22:17 Admit Provider: Ethan Boykin Attending Provider: Ethan Boykin Primary Care Provider: Arlin Gant Hospital Course Hospital Course: This is a 31 year old male with history of substance abuse, on Methadone, and h/o depression, remotely on Zoloft. Repoirts he has been feeling more depressed lately, due to ongoing issues with substance abuse, homelessness and general feeling of hopelessness. Reportedly overdosed on fentanyl in attempt at self harm. presented to the emergency department 2 days after requesting mental health treatment. Emergency medical screening shows elevations in transaminases AST 81, ALT 157) and drug screen positive for cocaine, THC, amphetamines and Methadone. He was cleared medically and evaluated by Mental health who agrees to voluntary admission pending placement. Patient states he has been drug free for 2 days prior to presentation other than his prescribed Methadone. He was experiencing no signs of active withdrawal. he was calm and cooperative. eating and drinking well. He has multiple lesions from picking, with no signs of infection. He has remained medically stable while awaiting an inpatient psychiatric bed. He was accepted at [facility] for inpatient psychiatric care. He is agreeable to this transfer. he is being transported by ground EMS. discharge discussed with Dr Morales. Home Meds and New Rx's Prescriptions: Continued methadone 10 mg/mL Solution 70 mg DAILY 0RF Discharge Instructions Instructions: Depression (DC) Referrals: Arlin Gant [Primary Care Provider] - Activity:: Activity as Tolerated Equipment/Supplies:: No Equipment Needed Diet:: As Tolerated Discharge Orders Discharge Orders: Discharge Order (Routine); Ordered 08/16/21 Ordered By: Zo Mejía DS: Summary Time Spent with Patient providing and/or coordinating discharge services: Greater than 30 minutes Status at Discharge Functional status at discharge: independent ambulation Overall status at discharge: patient is not back to baseline Mental Status: mental status grossly normal and other (quiet) Speech and Movement: speech and movement normal Mood: other (quiet) Affect: blunted Exam Const General: cooperative, no acute distress and ill appearing chronically Nutritional Appearance: thin Orientation: alert, awake and oriented x3 HENMT Head: normal to inspection, normocephalic and atraumatic Resp Effort & Inspection: normal respiratory effort Cardio Jugular venous pressure: other (well perfused) GI Inspection: normal to inspection Skin Lesions: lesion noted (multiple scattered round crusty scabbed areas on face and arms) Rashes: no rashes Neuro General: patient alert, patient awake and patient oriented x3 Extrem General: normal to inspection, full ROM and no pedal edema Psych Appearance: disheveled Mental Status: mental status grossly normal and other (quiet) Speech and Movement: speech and movement normal Mood: other (quiet) Affect: blunted Attitude: cooperative Thought Process: normal Thought Content: normal Insight: fair Judgment: fair DS: Data Vitals/I&O Vitals and I&O: Vital Signs Temperature 36.5 C 08/16/21 08:56 Temperature Source Tympanic 08/16/21 08:56 Pulse 52 L 08/16/21 08:56 Pulse Rhythm Regular 08/15/21 22:34 Respiratory Rate 12 08/16/21 08:56 Respiratory Effort Non-Labored 08/16/21 00:00 Respiratory Depth Normal 08/16/21 00:00 Respiratory Pattern Normal 08/16/21 00:00 Blood Pressure 114/63 08/16/21 08:56 Blood Pressure Position Sitting 08/15/21 11:15 Pulse Oximetry 100 08/16/21 08:56 Oxygen Delivery Method Room Air 08/16/21 08:56 Oxygen Flow Rate 0 08/16/21 08:56 Pain Level 0 08/15/21 22:34 Comment 08/15/21 23:30 Intake & Output 08/15/21 08/16/21 08/16/21 23:59 11:59 23:59 Weight 74.933 kg Other: Voiding Methods Toilet Data Completed and Pending Labs on day of discharge: Labs from last 24 hours 08/16/21 08/15/21 08/15/21 06:09 22:00 17:00 WBC 5.13 RBC 4.16 L Hgb 12.1 L Hct 36.3 L MCV 87.3 MCH 29.1 MCHC 33.3 RDW 13.3 Plt Count 329 MPV 8.5 Immature Gran % 0.0 Neutrophils % 33.6 Lymphocytes % 52.0 Monocytes % 11.9 Eosinophils % 2.3 Basophils % 0.2 Nucleated RBC % 0 Absolute Neutrophils 1.72 Absolute Lymphocytes 2.67 Absolute Monocytes 0.61 Absolute Eosinophils 0.12 Absolute Basophils 0.01 Sodium Potassium Chloride Carbon Dioxide Anion Gap BUN Creatinine Estimated GFR/1.73 m2 Glucose Calcium Total Bilirubin AST 67 H ALT 147 H Alkaline Phosphatase Total Protein Albumin TSH Free T4 Salicylates Acetaminophen Ethyl Alcohol COVID-19 Source Nasal/Nares SARS-CoV-2 (PCR) Negative 08/15/21 08/15/21 17:00 17:00 WBC RBC Hgb Hct MCV MCH MCHC RDW Plt Count MPV Immature Gran % Neutrophils % Lymphocytes % Monocytes % Eosinophils % Basophils % Nucleated RBC % Absolute Neutrophils Absolute Lymphocytes Absolute Monocytes Absolute Eosinophils Absolute Basophils Sodium 139 Potassium 3.9 Chloride 103 Carbon Dioxide 31.7 Anion Gap 4.3 BUN 10 Creatinine 0.9 Estimated GFR/1.73 m2 >= 60.00 Glucose 97 Calcium 8.8 Total Bilirubin 0.3 AST 81 H ALT 157 H Alkaline Phosphatase 94 Total Protein 7.2 Albumin 3.4 TSH 0.32 L Free T4 1.05 Salicylates < 2.8 Acetaminophen < 2 Ethyl Alcohol < 3.0 COVID-19 Source SARS-CoV-2 (PCR) PFSH All Active Problems Depression (Chronic) IV drug abuse (Acute) Cellulitis (Acute) Opiate withdrawal (Acute) Medication requested (Acute) Medical History Bacteremia Depression Hepatitis C Opioid abuse Osteomyelitis of right hip Surgical History No history of previous surgery Social History Smoking/Tobacco Use Status: Current every day Tobacco Type: cigarettes Smoking risk assessment performed?: Yes Alcohol Intake: never Drug use: Daily Substance use type: marijuana, crack/cocaine and heroin Do you feel safe at home: Yes Do you feel safe in your relationship?: Yes 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
--- NOTE | 2021-08-16 14:53 | CMDISCH_ITS ---
- If Service Date Differs Date of service: 08/16/21 Time of Service: 14:53 LACE Index Scoring Tool - Questions: Length of Stay (in days): 1 Acuity (Admit via E.D.?): Yes E.D. Visits: 3 - Answers: Total Score: 7 Risk of Readmission: Low Risk Care Management Discharge Reason for Hospitalization: Depression Discharge Plan: Ren will discharge to [facility] for Psychiatric stabilization. 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 Patient/Family Education Needs: Review discharge instructions, discuss Ask Me Three. Services Needed at Discharge: Psychiatric Facility ([facility] ), Transportation (EMS: [facility] ) - Disposition Disposition: [facility] Transport via of: [facility]
== END 2021-08-16 15:32 | disposition short-term general hospital (02) ==
LOC: ER 21:59 → MS 08-16 09:39
PROVIDERS: Student in an Organized Health Care Education/Training Program; Admitting Provider General Practice; Emergency Provider Emergency Medicine; PCP Nurse Practitioner Family; Visit Provider General Practice
DX: R45.851 Suicidal ideations (principal); F32.A Depression, unspecified; F17.210 Nicotine dependence, cigarettes, uncomplicated; F14.90 Cocaine use, unspecified, uncomplicated; F12.90 Cannabis use, unspecified, uncomplicated; F11.20 Opioid dependence, uncomplicated; Z59.00 Homelessness unspecified
CPT/HCPCS: 36415; 36416; 80053; 80307; 82962; 87635; 99285; 80320; 80329; 81003; 84439; 84443; 84450; 84460; 85025; 99217; 99218; G0378